=== PATIENT | male | born 1945 | race Caucasian/White ===

== ENCOUNTER 2017-06-02 05:34 | Outpatient (CLI) | payer MEDICARE, OTHER ==
[~2017-06-02] VITALS: Ht 180.3 cm; Wt 113.4 kg
[~2017-06-02 05:34] MED LIST: ALPR0.5T PO; CHERRY TART; FEXO1TAB43 PO; GLUC100016 PO; MULTIPLE VITAMINS; VITAMIN B12 PO; VITAMIN FOR EYES PO
[2017-06-02] MEDS ORDERED: VIT1CAPS4 PO (12:53)
[2017-06-02] MEDS ORDERED: MULT-1056 PO (12:53)
[2017-06-02] MEDS ORDERED: MULT-142 PO (12:53)
[2017-06-02] MEDS ORDERED: FEXO-46 PO (12:53)
[2017-06-02] MEDS ORDERED: TURM1CAP PO (12:53)
[2017-06-02] MEDS ORDERED: CYAN250010 PO (12:53)
== END 2017-06-02 12:58 ==
LOC: PREOP 05:34
PROVIDERS: ATTEND Surgery
DX: Z01.818 Encounter for other preprocedural examination (principal); L98.9 Disorder of the skin and subcutaneous tissue, unspecified

== ENCOUNTER 2017-06-05 08:23 | Day surgery (SDC) | payer MEDICARE, OTHER ==
[~2017-06-05] VITALS: Ht 180.3 cm; Wt 113.4 kg
[~2017-06-05 08:23] MED LIST changes: +CYAN250010 PO; +FEXO-46 PO; +MULT-1056 PO; +MULT-142 PO; +TURM1CAP PO; +VIT1CAPS4 PO
--- OUTSIDE RECORDS SUMMARY | 2017-06-05 08:27 | XMS REPORT | Continuity of Care Document ---
Author Author [facility] Organization [facility] Address Unknown Phone Unavailable Allergies Active Description Code Type Severity Reaction Onset Reported/Identified Relationship to Patient Clinical Status Yes No Known Drug Allergies [id number] Drug Allergy Unknown N/ A 02/07/2016 Medications Problems Date Dx Coded Attending Type Code Diagnosis Diagnosed By 02/07/2016 ED WILSON APRN Ot F41.9 ANXIETY DISORDER, UNSPECIFIED 02/11/2016 ED WILSON APRN Ot F41.9 ANXIETY DISORDER, UNSPECIFIED 2016 ED WILSON APRN Ot F41.9 ANXIETY DISORDER, UNSPECIFIED Procedures Results Encounters ACCT No. Visit Date/Time Discharge Status Pt. Type Provider Facility Loc./Unit Complaint [id number] 06/01/2017 11:30:00 2016 23:59:[address] MD [facility] SKIN LESIONS [id number] 02/07/2016 16:43:00 2015 19:20:00 DIS Emergency ED WILSON APRN [facility] ER [id number] 06/05/2017 11:15:[address] MD [facility] MULTIPLE SKIN LESIONS
--- NOTE | 2017-06-05 08:38 | Progress Note-Pre Operative ---
Pre-Operative Progress Note H&P Reviewed The H&P was reviewed, patient examined and no changes noted. Date Seen by Provider: May 18, 2017 Time Seen by Provider: 15:20 Date H&P Reviewed: Jun 05, 2017 Time H&P Reviewed: 08:38 Pre-Operative Diagnosis: Multiple skin lesions WENCESLAO WAY MD Jun 05, 2017 8:38 am
[2017-06-05 08:45] VITALS: BP 146/97
[2017-06-05] MEDS ORDERED: CATHETER FLUSH 10 ML SYR IV PRN (09:00)
[2017-06-05] MEDS ORDERED: ceFAZolin 2 GM/NS 50 ML IV ONE (09:00)
[2017-06-05] MEDS ORDERED: BUP/EPI 0.5% 1:200,000 (MARCAINE) 10ML VIAL IJ ONE (09:01)
[2017-06-05] MEDS ORDERED: EPINEPHrine INJECTION 1 MG/ML AMP ONE (09:01)
[2017-06-05] MEDS: LACTATED RINGERS 1,000 ML IV PRN ×2 (09:02→11:25)
[2017-06-05] MEDS ORDERED: fentaNYL INJECTION 100 MCG/2 ML AMP ONE ×2 (09:03→11:09)
[2017-06-05] MEDS ORDERED: LIDOCAINE PF 2% 5 ML (XYLOCAINE) VIAL ONE (09:03)
[2017-06-05] MEDS ORDERED: ONDANSETRON 4 MG/2 ML (SDV) Z0FRAN ONE (09:03)
[2017-06-05] MEDS ORDERED: proPOfol 200 MG/20 ML (DIPRIVAN) VIAL IV ONE ×2 (09:03→10:37)
[2017-06-05] MEDS ORDERED: SEVOFLURANE (ULTANE) 15 ML INHAL SOLN ONE (11:44)
[2017-06-05] MEDS ORDERED: ONDANSETRON 4 MG/2 ML (SDV) Z0FRAN IVP PRN (12:00)
[2017-06-05] MEDS ORDERED: morphine INJ 10 MG/ML 1ML (SYR OR VIAL) IVP PRN (12:00)
[2017-06-05] MEDS ORDERED: HYDR-3820 PO (12:00)
--- NOTE | 2017-06-05 12:00 | Operative Report ---
Operative Report Date of Procedure/Surgery Jun 05, 2017 Surgeon (s) WENCESLAO WAY MD Flight Director (s): n/a Post-Operative Diagnosis 1.2 cm skin cancer right flank 2. Squamous cell carcinoma scalp 4 x 4 centimeters 3. Squamous cell carcinoma right forearm 5 x 4 cm 4. Actinic keratosis dorsum of right hand 4 x 3 Procedure Performed 1.excision of all 4. Split thickness skin graft of number 2 and 3 Description of Procedure Anesthesia Type: General Estimated blood loss (mL): minimal Specimen(s) collected/removed skin cancers and actinic keratosis Description of the Procedure Indication for procedure: This gentleman presented with a total of 4 lesions involving scalp, right flank, right forearm and the dorsum of the right hand, having the appearance of skin cancers. He was offered excision with frozen section to confirm the diagnosis and ensure negative margins if carcinoma was found. With regard to the lesions over the scalp and the right forearm, the requirement for split thickness skin graft was highlighted. Informed consent was obtained after reviewing the operative details and complications of postoperative hematoma, failure of the graft and a wound infection. Description of the procedure: He was placed supine on the operating table and general anesthesia induced. 2 g of Ancef were administered intravenously as prophylaxis against wound infection. Sequential compression devices were placedaround his legs, to minimize the risk of venous thrombosis. 1. Excision of skin cancer right flank: He was placed in left lateral decubitus position to achieve optimal exposure of the involved region. After adequate antiseptic preparation, pre-empty analgesia was established using 0.5 percent Marcaine with epinephrine. An elliptical incision 3 cm long by 2 cm in width was made and the lesion excised down to the subcutaneous tissue. It was confirmed to have negative margins by the pathologist. Hemostasis was achieved using cautery and the defect closed using 4-0 nylon sutures, in an interrupted fashion. A nonadherent dressing was then applied. 2. Excision of squamous cell carcinoma scalp/split thickness skin grafting(16 square centimeters): Pre-empty analgesia was established using the same technique. The lesion was excised down to the periosteum and sent for frozen section analysis. Confirmed to be a squamous cell carcinoma with negative margins. Hemostasis was achieved using cautery and ligated clips. A split thickness graft taken from the right upper arm was placed over the excision site and secured with santos. A nonadherent dressing was then applied. 3. Excision of the muscle carcinoma right forearm/ split thickness skin grafting ( 20 cm): the lesion over the right forearm was excised down to the subcutaneous tissue and confirmed to be a squamous cell carcinoma with negative margins. Hemostasis was achieved using minimal use of cautery and ligaclips. A split thickness skin graft obtained from the right from was placed over the excision and secured with santos. A nonadherent dressing was then applied. 4.Excision of actinic keratosis-dorsum of right hand: 4 cm long by 3 cm in width was made over the dorsum of the right hand and the lesion excised. It was confirmed to be an actinic keratosis with negative margins. The defect was then closed using a combination of 40 and 5-0 nylon sutures, in an interrupted fashion. A nonadherent dressing was then applied. He tolerated the procedures well, was extubated in the operative room and taken to the recovery room in a stable condition. Findings of the Procedure see operative report Allergies and Home Medications Allergies Coded Allergies: No Known Drug Allergies (Unverified , 02/07/16) Home Medications Cyanocobalamin (Vitamin B-12) 2,500 Mcg Tablet, 2,500 MCG PO DAILY, (Reported) Fexofenadine HCl 180 Mg Tablet, 180 MG PO DAILY, (Reported) Multivit-Min/FA/Lycopen/Lutein 1 Each Tablet, 1 EACH PO DAILY, (Reported) Multivitamin W-Minerals/Lutein 1 Each Tablet, 1 EACH PO DAILY, (Reported) Turmeric/Turmeric Ext/Pepr Ext 1 Each Capsule, 500 MG PO BID, (Reported) Vit C/Hernández & Celery Ex/Grp E 1 Each Capsule, 1,200 MG PO DAILY, (Reported) WENCESLAO WAY MD Jun 05, 2017 12:00 pm
--- NOTE | 2017-06-05 12:02 | Discharge Inst-Simple/Standard ---
Discharge Inst-Standard Discharge Medications New, Converted or Re-Newed RX: RX on Chart Patient Instructions/Follow Up Plan of Care/Instructions/FU: right upper extremity to be kept elevated as much as possible. May reinforce the right upper arm with ABD pads and Kerlix as needed. Follow-up with my nurse on Thursday morning for dressing change. All the dressings to remain untouched and intact please Activity as Tolerated: Yes Discharge Diet: No Restrictions WENCESLAO WAY MD Jun 05, 2017 12:02 pm
[2017-06-05 13:00] VITALS: BP 125/77
[2017-06-05 13:01] VITALS: BP 125/77
[2017-06-05 13:33] VITALS: BP 124/78
[2017-06-05 14:00] VITALS: BP 130/77
== END 2017-06-05 14:20 | disposition home or self-care (01) ==
LOC: SDC 08:23
PROVIDERS: ATTEND Surgery
DX: C44.622 Squamous cell carcinoma of skin of right upper limb, including shoulder (principal); L08.9 Local infection of the skin and subcutaneous tissue, unspecified; G47.33 Obstructive sleep apnea (adult) (pediatric)
CPT/HCPCS: 87081

== ENCOUNTER → 2018-06-15 | Outpatient (CLI) | payer MEDICARE, OTHER ==
[~2018-06-15] MED LIST changes: +GADOBUTROL 15 MMOL/15 ML (GADAVIST) VIAL IV ONE; +HYDR-3820 PO
[2018-06-15 11:08] LABS: CREATININE SERUM 1.23 MG/DL (0.60-1.30)
--- NOTE | 2018-06-15 13:30 | Diagnostic Imaging Report ---
INDICATION: Left eye difficulties with swelling and inability to open. TECHNIQUE: Pre and post intravenous contrast multiplanar multisequence imaging of the brain and orbits was performed. COMPARISON: No prior MRI studies are available for comparison. FINDINGS: The ventricles and sulci are consistent with the patient's age. There are mild periventricular and subcortical white matter signal abnormalities noted, likely on the basis of chronic microvascular ischemia. The normal expected flow voids within the carotid siphons are seen. No diffusion restriction is seen to suggest acute ischemia. The corpus callosum is unremarkable. The sella and parasellar structures are unremarkable. No abnormal enhancing lesion is seen following contrast administration. Thin-slice imaging through the orbits was also performed. Bilateral globes have a normal appearance. The extraocular muscles appear to be symmetric bilaterally. No intraconal or extraconal mass is seen. Bilateral optic nerves and optic tracts as well as optic chiasm are unremarkable. IMPRESSION: Essentially unremarkable MRI of the brain and orbits apart from changes of chronic microvascular ischemia. No acute feature is detected. Dictated by: Dictated on workstation # [id number]
== END ==
LOC: RAD 10:36
PROVIDERS: ATTEND Ophthalmology
DX: H49.02 Third [oculomotor] nerve palsy, left eye (principal); H35.82 Retinal ischemia
CPT/HCPCS: 36415; 70553; 82565; 84520

== ENCOUNTER → 2018-12-30 | Outpatient (CLI) | payer MEDICARE, OTHER ==
[~2018-12-30] MED LIST changes: -GADOBUTROL 15 MMOL/15 ML (GADAVIST) VIAL IV ONE; +HOLD METFORMIN - RECEIVED CONTRAST 20 ML VIAL IV SCH
[2018-12-30 08:00] LABS: ALBUMIN 4.1 GM/DL (3.2-4.5); BILIRUBIN,TOTAL 0.8 MG/DL (0.1-1.0); CALCIUM 9.5 MG/DL (8.5-10.1); CREATININE SERUM 1.19 MG/DL (0.60-1.30); POTASSIUM 4.1 MMOL/L (3.6-5.0); TOTAL PROTEIN 7.6 GM/DL (6.4-8.2)
[2018-12-30] MEDS: IOHEXOL 350 MG/ML 100 ML (OMNIPAQUE 350) VIAL IV ONE (08:56)
--- NOTE | 2018-12-30 09:43 | Diagnostic Imaging Report ---
PROCEDURE: CT chest with contrast only. TECHNIQUE: Multiple contiguous axial images were obtained through the chest after administration of intravenous contrast. Auto Exposure Controls were utilized during the CT exam to meet ALARA standards for radiation dose reduction. INDICATION: Thymoma. No previous for comparison. There is no soft tissue infiltration or distortion of the anterior mediastinal fat. The pericardium appeared unremarkable. There is no pericardial effusion. Aorta is patent and nonaneurysmal. There is a small retrocardiac gastric hernia. The lungs are clear. No nodule, mass or infiltrate. No thoracic lymphadenopathy. No acute chest wall abnormality of the visualized upper abdomen that showed no acute finding. IMPRESSION: No CT apparent thymoma or other mediastinal mass. Hiatal hernia with no acute abnormality. Dictated by: Dictated on workstation # [id number]
== END ==
LOC: RAD 07:29
PROVIDERS: ATTEND Internal Medicine
DX: D15.0 Benign neoplasm of thymus (principal); K44.9 Diaphragmatic hernia without obstruction or gangrene
CPT/HCPCS: 36415; 71260; 80053

== ENCOUNTER → 2020-05-21 | Outpatient (CLI) | payer MEDICARE, OTHER ==
[~2020-05-21] MED LIST changes: +ACHYD1T PO; -HOLD METFORMIN - RECEIVED CONTRAST 20 ML VIAL IV SCH; -HYDR-3820 PO
--- NOTE | 2020-05-21 10:31 | Diagnostic Imaging Report ---
INDICATION: Dysphagia. TECHNIQUE: The procedure was performed in conjunction with Speech Pathology. Video fluoroscopy was performed during the swallowing of barium in multiple consistencies. The patient ingested thin liquid as well as applesauce, banana, meat, and cracker consistency. A total of 44 seconds of fluoroscopic time was utilized. FINDINGS: The oral phase is unremarkable. There is normal epiglottic tilt and laryngeal elevation. No laryngeal penetration or aspiration was observed. Very mild vallecular residue was noted with multiple consistencies. IMPRESSION: Essentially unremarkable modified barium swallow. There was no evidence of penetration or aspiration. Dictated by: Dictated on workstation # [id number]
== END ==
LOC: RAD 09:44
PROVIDERS: ATTEND Internal Medicine
DX: R13.19 Other dysphagia (principal)
CPT/HCPCS: 74230

== ENCOUNTER → 2020-07-05 | Outpatient (CLI) | payer MEDICARE, OTHER ==
[~2020-07-05] MED LIST changes: +HOLD METFORMIN - RECEIVED CONTRAST 20 ML VIAL IV SCH; +IOHEXOL 350 MG/ML 100 ML (OMNIPAQUE 350) VIAL IV ONE; +NS 100 ML (IVPB) BAG IV ONE
[2020-07-05 07:33] LABS: BUN/CREATININE RATIO 13; CALCIUM 9.3 MG/DL (8.5-10.1); CARBON DIOXIDE 27 MMOL/L (21-32); CHLORIDE 103 MMOL/L (98-107); GFR ESTIMATED > 60; GLUCOSE 101 MG/DL (70-105); POTASSIUM 4.1 MMOL/L (3.6-5.0); SODIUM 141 MMOL/L (135-145)
--- NOTE | 2020-07-05 09:01 | Diagnostic Imaging Report ---
PROCEDURE: CT chest, abdomen, and pelvis with contrast. TECHNIQUE: Multiple contiguous axial images were obtained through the chest, abdomen, and pelvis after the administration of intravenous contrast. Auto Exposure Controls were utilized during the CT exam to meet ALARA standards for radiation dose reduction. INDICATION: Weight loss and adenocarcinoma. COMPARISON: Correlation is made with prior CT chest from 12/30/2018. FINDINGS: CT chest: No axillary lymphadenopathy is identified. No mediastinal mass or lymphadenopathy is detected. No hilar lymphadenopathy is identified. There is no pericardial or pleural fluid detected. The lungs appear clear. No pulmonary nodules or masses are seen. There are no infiltrates. There is minimal scarring in the lingula. The bony structures are nonacute. IMPRESSION: Unremarkable CT of the chest. No thoracic lymphadenopathy or evidence of pulmonary metastatic disease is identified. CT abdomen and pelvis: The liver does show some low-density heterogeneity in the left lobe. Liver lesions at this location cannot be entirely excluded. Right lobe is unremarkable. Gallbladder is unremarkable. There is no biliary ductal dilatation. Pancreas and spleen are unremarkable. No adrenal mass is detected. Kidneys are unremarkable. Aorta is non-aneurysmal. 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 There are some prominent lymph nodes in the central retroperitoneum in the right and left para-aortic locations. Lymph node conglomerate left periaortic region measures 2.1 x 1.3 cm. Lymph node anterior to the left-sided IVC measures 1.5 x 1.1 cm. There also appears to be abnormal soft tissue in the gastrohepatic region measuring 3.4 x 2.5 cm. No iliac or inguinal lymphadenopathy is detected. Aorta is non-aneurysmal. Small and large bowel loops are normal caliber. There is no obstruction. There is extensive diverticulosis of the sigmoid but no evidence of acute diverticulitis. No free fluid or fluid collection is identified. The bladder is decompressed. Prostate is enlarged. The bony structures are nonacute. IMPRESSION: 1. There is ill-defined low density identified in the left lobe of the liver. It is uncertain if this merely represents parenchymal heterogeneity versus actual liver lesions. Ultrasound or MRI of the liver would be recommended for further characterization. In addition, the patient does have lymphadenopathy in the gastrohepatic ligament as well as in the central retroperitoneum concerning for metastatic disease. 2. Uncomplicated diverticulosis. 3. Prostatomegaly. Dictated by: Dictated on workstation # [id number]
== END ==
LOC: RAD 07:07
PROVIDERS: ATTEND Internal Medicine
DX: C16.9 Malignant neoplasm of stomach, unspecified (principal); N40.1 Benign prostatic hyperplasia with lower urinary tract symptoms; K57.90 Diverticulosis of intestine, part unspecified, without perforation or abscess without bleeding
CPT/HCPCS: 36415; 71260; 74177; 80048

== ENCOUNTER → 2020-07-24 | Outpatient (CLI) | payer MEDICARE, OTHER ==
[~2020-07-24] MED LIST changes: -HOLD METFORMIN - RECEIVED CONTRAST 20 ML VIAL IV SCH; -IOHEXOL 350 MG/ML 100 ML (OMNIPAQUE 350) VIAL IV ONE; -NS 100 ML (IVPB) BAG IV ONE
--- NOTE | 2020-07-25 11:21 | Diagnostic Imaging Report ---
INDICATION: Adenocarcinoma of the esophagus. PROCEDURE: Following intravenous injection of 14.71 mCi of F18 Fluorodeoxyglucose (FDG), a noncontrast CT scan followed by PET scan were acquired along the length of the body from approximately the vertex of skull to the proximal thighs. The noncontrast CT was used for anatomic localization and photon attenuation correction of the PET scan. COMPARISON: None. FINDINGS: The brain does not show any metabolic lesion. The cervical lymph nodes are negative. Supraclavicular and axillary nodes are negative. The mediastinal and hilar lymph nodes do not show any significant abnormality. No hypermetabolic esophageal lesion is identified. Increased isotope accumulation is present in the gastric cardia, SUV max at about 2.8 which questionable soft tissue density wall thickening at that region. The lungs and pleural space are negative. In the lateral segment of the left lobe of the liver and the anterior aspect of the medial segment of the left lobe, relative mildly increased metabolic activity is present. The SUV max of the left lobe is about 2.0. The normal liver has an SUV max of 1.6. The increased metabolic activity is poorly defined. The spleen is negative. The adrenals are negative. The lymphadenopathy identified in the gastrohepatic ligament on the recent CT scan is not hypermetabolic. It has low-level metabolic activity with an SUV max of 1.6. The aortocaval and para-aortic adenopathy identified on the recent CT scan is not hypermetabolic either with low level metabolic activity. The pelvic and inguinal nodes are negative. Multiple sigmoid diverticula are present. The prostate gland is enlarged without any focal lesion. No hypermetabolic osseous lesion is seen. IMPRESSION: 1. The gastrohepatic ligament and retroperitoneal adenopathy are not hypermetabolic and could represent benign disease or low-grade malignant neoplasm. 2. Slight increased xen-wixz-akxe metabolic activity in the lateral segment of the left lobe of the liver and anterior medial segment of the left lobe. This may be physiologic normal variation rather than neoplasm. Recommend MRI of the liver for assessment. 3. Indeterminate increased metabolic activity and possible wall thickening of the gastric cardia. This is suspicious for primary neoplasm rather than physiologic activity. 4. The report was called and faxed to [facility] in the office of Dr. Froilan Valle by samuel@1:51 PM. Dictated by: Dictated on workstation # [id number]
== END ==
LOC: RAD 09:45
PROVIDERS: ATTEND Internal Medicine Hematology & Oncology
DX: C15.9 Malignant neoplasm of esophagus, unspecified (principal); R59.0 Localized enlarged lymph nodes
CPT/HCPCS: 78815; A9552

== ENCOUNTER 2020-07-25 14:43 | Outpatient (RCR) | payer MEDICARE, OTHER ==
[2020-07-17 10:32] LABS: BASOPHILS # (AUTO) 0.1 10^3/uL (0.0-0.1); BASOPHILS % (AUTO) 1 % (0-10); EOSINOPHILS # (AUTO) 0.3 10^3/uL (0.0-0.3); EOSINOPHILS % (AUTO) 4 % (0-10); HEMATOCRIT 47 % (40-54); HEMOGLOBIN 15.2 g/dL (13.3-17.7); LYMPHOCYTES # (AUTO) 2.7 10^3/uL (1.0-4.0); LYMPHOCYTES % (AUTO) 41 % (12-44); MEAN CORPUSCULAR HEMOGLOBIN 31 pg (25-34); MEAN CORPUSCULAR HGB CONC 33 g/dL (32-36); MEAN CORPUSCULAR VOLUME 95 fL (80-99); MEAN PLATELET VOLUME 9.6 fL (9.0-12.2); MONOCYTES # (AUTO) 0.4 10^3/uL (0.0-1.0); MONOCYTES % (AUTO) 6 % (0-12); NEUTROPHILS # (AUTO) 3.1 10^3/uL (1.8-7.8); NEUTROPHILS % (AUTO) 48 % (42-75); PLATELET COUNT 207 10^3/uL (130-400); WHITE BLOOD COUNT 6.5 10^3/uL (4.3-11.0)
[2020-07-17 10:54] LABS: ALANINE AMINOTRANSFERASE 32 U/L (0-55); ALBUMIN 3.7 GM/DL (3.2-4.5); ALKALINE PHOSPHATASE 179 U/L (40-136); BILIRUBIN,TOTAL 0.7 MG/DL (0.1-1.0); BUN/CREATININE RATIO 16; CALCIUM 9.2 MG/DL (8.5-10.1); CARBON DIOXIDE 26 MMOL/L (21-32); CHLORIDE 104 MMOL/L (98-107); CREATININE SERUM 1.03 MG/DL (0.60-1.30); GFR ESTIMATED > 60; GLUCOSE 119 MG/DL (70-105); POTASSIUM 4.2 MMOL/L (3.6-5.0); SODIUM 141 MMOL/L (135-145); TOTAL PROTEIN 7.5 GM/DL (6.4-8.2)
== END 2020-09-03 09:20 | disposition home or self-care (01) ==
LOC: ONC 14:43
PROVIDERS: ATTEND Internal Medicine Hematology & Oncology
DX: C16.9 Malignant neoplasm of stomach, unspecified (principal); C15.9 Malignant neoplasm of esophagus, unspecified; Z98.42 Cataract extraction status, left eye
CPT/HCPCS: 80053; 82378; 85025; G0463; 99213; 99214

== ENCOUNTER → 2020-08-06 | Outpatient (CLI) | payer MEDICARE, OTHER | LOC: LABNPT 08:15 | PROVIDERS: ATTEND Internal Medicine Gastroenterology | DX: Z20.828 Contact with and (suspected) exposure to other viral communicable diseases (principal) | CPT/HCPCS: 87635 ==

== ENCOUNTER 2020-09-18 15:11 | Emergency (ER) | payer MEDICARE, OTHER ==
[~2020-09-18] VITALS: Ht 70 cm; Wt 85.0 kg
--- NOTE | 2020-09-18 16:03 | ED General ---
General Chief Complaint: Catheter/Drain/Tube Problems Stated Complaint: CRUZ CAME OUT OF FEEDING TUBE Nursing Triage Note: pt states there is a stitch that has came out on the right side. Pt dr told him to go to original but they are in [place] so the patient came to ER. Nursing Sepsis Screen: No Definite Risk (SHANEKA CHAN MED STUDENT) History of Present Illness Date Seen by Provider: Sep 18, 2020 Time Seen by Provider: 15:33 Initial Comments This is a 75 year old patient who presents to the Emergency Department via ambulation for a chief complaint of a stitch that fell out from his feeding tube. His home healthcare nurse noticed it. He went to his PCP Dr. Galvez but he declined to replace the stitch. His doctor advised him to go the where the tube was placed. The patient states that was too far for him and came to the ER. He denies leakage, inflammation, or redness. He is currently receiving treatment at for his upper stomach and esophageal cancer. Associated Systoms: Denies Symptoms (SHANEKA CHAN STUDENT) Allergies and Home Medications Allergies Coded Allergies: No Known Drug Allergies (Unverified , 02/07/16) Home Medications Cyanocobalamin (Vitamin B-12) 2,500 Mcg Tablet, 2,500 MCG PO DAILY, (Reported) Fexofenadine HCl 180 Mg Tablet, 180 MG PO DAILY, (Reported) Hydrocodone Bit/Acetaminophen 1 Each Tablet, 1 TAB PO Q4H PRN for PAIN-MILD TO MODERATE Prescribed by: WENCESLAO WAY on 06/05/17 1200 Multivit-Min/FA/Lycopen/Lutein 1 Each Tablet, 1 EACH PO DAILY, (Reported) Multivitamin W-Minerals/Lutein 1 Each Tablet, 1 EACH PO DAILY, (Reported) Turmeric/Turmeric Ext/Pepr Ext 1 Each Capsule, 500 MG PO BID, (Reported) Vit C/Hernández & Celery Ex/Grp E 1 Each Capsule, 1,200 MG PO DAILY, (Reported) Patient Home Medication List Home Medication List Reviewed: Yes (ED WILSON APRN) Review of Systems Review of Systems Constitutional: no symptoms reported EENTM: no symptoms reported Respiratory: no symptoms reported Cardiovascular: no symptoms reported Gastrointestinal: no symptoms reported Genitourinary: no symptoms reported Musculoskeletal: no symptoms reported Skin: no symptoms reported Psychiatric/Neurological: No Symptoms Reported Hematologic/Lymphatic: No Symptoms Reported Immunological/Allergic: no symptoms reported (SHANEKA CHAN minicabit SHANE) Past Syxwoog-Qpormf-Rxsoly Hx Patient Social History Recent Infectious Disease Expo: No Recent Hopitalizations: No (SHANEKA CHAN) Immunizations Up To Date Tetanus Booster (TDap): Unknown (SHANEKA CHAN) Seasonal Allergies Seasonal Allergies: Yes (SHANEKA CHAN) Past Medical History Sleep Apnea Currently Using CPAP: Yes Reproductive Disorders: No Sexually Transmitted Disease: No HIV/AIDS: No Arthritis, Gout Skin (SHANEKA CHAN minicabit SHANE) Physical Exam Vital Signs Vital Signs - First Documented 09/18/20 15:20 Temp 36.4 Pulse 66 Resp 16 B/P (MAP) 128/87 (101) Pulse Ox 100 O2 Delivery Room Air (ED WILSON APRN) Vital Signs Capillary Refill : Less Than 3 Seconds (SHANEKA CHAN) Height, Weight, BMI Height: 5'11.00" Weight: 250lbs. 0.0oz. 113.741105mh; 173.00 BMI Method:Stated General Appearance: No Apparent Distress, WD/WN Respiratory: Chest Non Tender, Lungs Clear, Normal Breath Sounds, No Accessory Muscle Use, No Respiratory Distress Cardiovascular: Regular Rate, Rhythm Comments A missing stitch from feeding tube on abdomen (SHANEKA CHAN) Progress/Results/Core Measures Suspected Sepsis Recent Fever Within 48 Hours: No Infection Criteria Present: None New/Unexplained Altered Menta: No Sepsis Screen: No Definite Risk SIRS Temperature: Pulse: 66 Respiratory Rate: 16 Blood Pressure 128 /87 Mean: 101 (SHANEKA CHAN STUDENT) Results/Orders Vital Signs/I&O 09/18/20 09/18/20 15:20 16:38 Temp 36.4 36.4 Pulse 66 75 Resp 16 20 B/P (MAP) 128/87 (101) 128/68 Pulse Ox 100 100 O2 Delivery Room Air Room Air (ED WILSON APRN) Vital Signs/I&O Capillary Refill : Less Than 3 Seconds (SHANEKA CHAN) Blood Pressure Mean: 101 Departure Communication (Admissions) To ER with one of the 2 silk sutures holding the new gastrostomy tube in place having come undone. Primary care would not touch it and they advised he could go back to [facility]. He preferred to come here. (ED WILSON APRN) Impression Primary Impression: Broken suture Disposition: 01 HOME, SELF-CARE Condition: Stable Departure-Patient Inst. Decision time for Depature: 16:08 (ED WILSON APRN) Referrals: JOSE ARMANDO GALVEZ DO (PCP/Family) Primary Care Physician Patient Instructions: Wound Care Add. Discharge Instructions: 1. Keep a close eye on this for any redness swelling or sign of infection. Follow-up with [facility] as scheduled. All discharge instructions reviewed with patient and/or family. Voiced understanding. SHANEKA CHAN MED STUDENT Sep 18, 2020 16:03 ED WILSON APRN Sep 18, 2020 16:08
[2020-09-18 16:38] VITALS: BP 128/68
== END 2020-09-18 16:38 | disposition home or self-care (01) ==
LOC: EDUNIT# 15:11 → ER 15:16
DX: T85.612A Breakdown (mechanical) of permanent sutures, initial encounter (principal)
CPT/HCPCS: 99281

== ENCOUNTER 2020-11-26 11:23 | Outpatient (RCR) | payer MEDICARE, OTHER ==
[2020-09-11 11:29] LABS: BASOPHILS # (AUTO) 0.1 10^3/uL (0.0-0.1); BASOPHILS % (AUTO) 1 % (0-10); EOSINOPHILS # (AUTO) 0.2 10^3/uL (0.0-0.3); EOSINOPHILS % (AUTO) 4 % (0-10); HEMATOCRIT 44 % (40-54); HEMOGLOBIN 14.6 g/dL (13.3-17.7); LYMPHOCYTES % (AUTO) 35 % (12-44); MEAN CORPUSCULAR HEMOGLOBIN 32 pg (25-34); MEAN CORPUSCULAR HGB CONC 33 g/dL (32-36); MEAN CORPUSCULAR VOLUME 96 fL (80-99); MEAN PLATELET VOLUME 9.9 fL (9.0-12.2); MONOCYTES # (AUTO) 0.3 10^3/uL (0.0-1.0); MONOCYTES % (AUTO) 6 % (0-12); NEUTROPHILS # (AUTO) 3.1 10^3/uL (1.8-7.8); NEUTROPHILS % (AUTO) 54 % (42-75); PLATELET COUNT 226 10^3/uL (130-400); WHITE BLOOD COUNT 5.7 10^3/uL (4.3-11.0)
[2020-09-11 11:50] LABS: ALANINE AMINOTRANSFERASE 185 U/L (0-55); ALBUMIN 3.6 GM/DL (3.2-4.5); ALKALINE PHOSPHATASE 886 U/L (40-136); BUN/CREATININE RATIO 19; CALCIUM 9.4 MG/DL (8.5-10.1); CARBON DIOXIDE 29 MMOL/L (21-32); CHLORIDE 104 MMOL/L (98-107); CREATININE SERUM 0.86 MG/DL (0.60-1.30); GFR ESTIMATED > 60; GLUCOSE 94 MG/DL (70-105); MAGNESIUM 2.1 MG/DL (1.6-2.4); POTASSIUM 4.4 MMOL/L (3.6-5.0); SODIUM 141 MMOL/L (135-145); TOTAL PROTEIN 7.7 GM/DL (6.4-8.2)
[2020-09-25 09:18] LABS: BASOPHILS % (AUTO) 1 % (0-10); EOSINOPHILS # (AUTO) 0.2 10^3/uL (0.0-0.3); EOSINOPHILS % (AUTO) 3 % (0-10); HEMATOCRIT 40 % (40-54); HEMOGLOBIN 13.1 g/dL (13.3-17.7); LYMPHOCYTES # (AUTO) 2.7 10^3/uL (1.0-4.0); LYMPHOCYTES % (AUTO) 46 % (12-44); MEAN CORPUSCULAR HEMOGLOBIN 31 pg (25-34); MEAN CORPUSCULAR HGB CONC 33 g/dL (32-36); MEAN CORPUSCULAR VOLUME 95 fL (80-99); MEAN PLATELET VOLUME 9.3 fL (9.0-12.2); MONOCYTES # (AUTO) 0.4 10^3/uL (0.0-1.0); MONOCYTES % (AUTO) 8 % (0-12); NEUTROPHILS # (AUTO) 2.5 10^3/uL (1.8-7.8); NEUTROPHILS % (AUTO) 42 % (42-75); PLATELET COUNT 204 10^3/uL (130-400); WHITE BLOOD COUNT 5.9 10^3/uL (4.3-11.0)
[2020-09-25 09:40] LABS: ALANINE AMINOTRANSFERASE 82 U/L (0-55); ALBUMIN 3.5 GM/DL (3.2-4.5); ALKALINE PHOSPHATASE 633 U/L (40-136); BILIRUBIN,TOTAL 0.7 MG/DL (0.1-1.0); BUN/CREATININE RATIO 18; CALCIUM 9.2 MG/DL (8.5-10.1); CARBON DIOXIDE 26 MMOL/L (21-32); CHLORIDE 104 MMOL/L (98-107); CREATININE SERUM 0.88 MG/DL (0.60-1.30); GFR ESTIMATED > 60; GLUCOSE 96 MG/DL (70-105); MAGNESIUM 2.2 MG/DL (1.6-2.4); POTASSIUM 4.4 MMOL/L (3.6-5.0); SODIUM 141 MMOL/L (135-145)
[2020-10-01 12:00] LABS: BUN/CREATININE RATIO 20; CALCIUM 9.2 MG/DL (8.5-10.1); CARBON DIOXIDE 26 MMOL/L (21-32); CHLORIDE 103 MMOL/L (98-107); CREATININE SERUM 0.92 MG/DL (0.60-1.30); GFR ESTIMATED > 60; GLUCOSE 110 MG/DL (70-105); POTASSIUM 4.2 MMOL/L (3.6-5.0); SODIUM 141 MMOL/L (135-145)
[2020-10-08 09:39] LABS: BASOPHILS % (AUTO) 0 % (0-10); EOSINOPHILS # (AUTO) 0.1 10^3/uL (0.0-0.3); EOSINOPHILS % (AUTO) 2 % (0-10); HEMATOCRIT 40 % (40-54); HEMOGLOBIN 13.3 g/dL (13.3-17.7); LYMPHOCYTES # (AUTO) 2.8 10^3/uL (1.0-4.0); LYMPHOCYTES % (AUTO) 49 % (12-44); MEAN CORPUSCULAR HEMOGLOBIN 31 pg (25-34); MEAN CORPUSCULAR HGB CONC 33 g/dL (32-36); MEAN CORPUSCULAR VOLUME 95 fL (80-99); MEAN PLATELET VOLUME 9.6 fL (9.0-12.2); MONOCYTES # (AUTO) 0.4 10^3/uL (0.0-1.0); MONOCYTES % (AUTO) 8 % (0-12); NEUTROPHILS # (AUTO) 2.3 10^3/uL (1.8-7.8); NEUTROPHILS % (AUTO) 41 % (42-75); PLATELET COUNT 171 10^3/uL (130-400); WHITE BLOOD COUNT 5.6 10^3/uL (4.3-11.0)
[2020-10-08 09:52] LABS: ALANINE AMINOTRANSFERASE 76 U/L (0-55); ALBUMIN 3.5 GM/DL (3.2-4.5); ALKALINE PHOSPHATASE 534 U/L (40-136); BILIRUBIN,TOTAL 0.6 MG/DL (0.1-1.0); BUN/CREATININE RATIO 16; CALCIUM 9.2 MG/DL (8.5-10.1); CARBON DIOXIDE 25 MMOL/L (21-32); CHLORIDE 106 MMOL/L (98-107); CREATININE SERUM 0.85 MG/DL (0.60-1.30); GFR ESTIMATED > 60; GLUCOSE 93 MG/DL (70-105); MAGNESIUM 2.3 MG/DL (1.6-2.4); POTASSIUM 4.6 MMOL/L (3.6-5.0); SODIUM 142 MMOL/L (135-145); TOTAL PROTEIN 7.3 GM/DL (6.4-8.2)
[2020-10-16 12:06] LABS: BASOPHILS % (AUTO) 0 % (0-10); EOSINOPHILS # (AUTO) 0.1 10^3/uL (0.0-0.3); EOSINOPHILS % (AUTO) 1 % (0-10); HEMATOCRIT 40 % (40-54); HEMOGLOBIN 13.2 g/dL (13.3-17.7); LYMPHOCYTES # (AUTO) 2.9 10^3/uL (1.0-4.0); LYMPHOCYTES % (AUTO) 40 % (12-44); MEAN CORPUSCULAR HEMOGLOBIN 32 pg (25-34); MEAN CORPUSCULAR HGB CONC 33 g/dL (32-36); MEAN CORPUSCULAR VOLUME 96 fL (80-99); MEAN PLATELET VOLUME 9.7 fL (9.0-12.2); MONOCYTES # (AUTO) 0.8 10^3/uL (0.0-1.0); MONOCYTES % (AUTO) 11 % (0-12); NEUTROPHILS # (AUTO) 3.3 10^3/uL (1.8-7.8); NEUTROPHILS % (AUTO) 46 % (42-75); PLATELET COUNT 184 10^3/uL (130-400); WHITE BLOOD COUNT 7.1 10^3/uL (4.3-11.0)
[2020-10-16 12:27] LABS: BUN/CREATININE RATIO 22; CALCIUM 9.4 MG/DL (8.5-10.1); CARBON DIOXIDE 26 MMOL/L (21-32); CHLORIDE 105 MMOL/L (98-107); CREATININE SERUM 0.87 MG/DL (0.60-1.30); GFR ESTIMATED > 60; GLUCOSE 93 MG/DL (70-105); POTASSIUM 4.2 MMOL/L (3.6-5.0); SODIUM 143 MMOL/L (135-145)
[2020-10-22 09:28] LABS: BASOPHILS % (AUTO) 1 % (0-10); EOSINOPHILS # (AUTO) 0.1 10^3/uL (0.0-0.3); EOSINOPHILS % (AUTO) 2 % (0-10); HEMATOCRIT 38 % (40-54); HEMOGLOBIN 12.5 g/dL (13.3-17.7); LYMPHOCYTES # (AUTO) 2.4 10^3/uL (1.0-4.0); LYMPHOCYTES % (AUTO) 48 % (12-44); MEAN CORPUSCULAR HEMOGLOBIN 31 pg (25-34); MEAN CORPUSCULAR HGB CONC 33 g/dL (32-36); MEAN CORPUSCULAR VOLUME 94 fL (80-99); MEAN PLATELET VOLUME 9.9 fL (9.0-12.2); MONOCYTES # (AUTO) 0.5 10^3/uL (0.0-1.0); MONOCYTES % (AUTO) 10 % (0-12); NEUTROPHILS % (AUTO) 40 % (42-75); PLATELET COUNT 223 10^3/uL (130-400); WHITE BLOOD COUNT 5.1 10^3/uL (4.3-11.0)
[2020-10-22 09:49] LABS: ALANINE AMINOTRANSFERASE 45 U/L (0-55); ALBUMIN 3.3 GM/DL (3.2-4.5); ALKALINE PHOSPHATASE 483 U/L (40-136); BILIRUBIN,TOTAL 0.6 MG/DL (0.1-1.0); BUN/CREATININE RATIO 19; CALCIUM 9.3 MG/DL (8.5-10.1); CARBON DIOXIDE 26 MMOL/L (21-32); CHLORIDE 105 MMOL/L (98-107); CREATININE SERUM 0.83 MG/DL (0.60-1.30); GFR ESTIMATED > 60; GLUCOSE 99 MG/DL (70-105); MAGNESIUM 2.1 MG/DL (1.6-2.4); POTASSIUM 4.5 MMOL/L (3.6-5.0); SODIUM 141 MMOL/L (135-145); TOTAL PROTEIN 7.2 GM/DL (6.4-8.2)
[2020-10-29 11:04] LABS: BASOPHILS % (AUTO) 0 % (0-10); EOSINOPHILS # (AUTO) 0.1 10^3/uL (0.0-0.3); EOSINOPHILS % (AUTO) 1 % (0-10); HEMATOCRIT 41 % (40-54); HEMOGLOBIN 13.3 g/dL (13.3-17.7); LYMPHOCYTES # (AUTO) 2.7 10^3/uL (1.0-4.0); LYMPHOCYTES % (AUTO) 48 % (12-44); MEAN CORPUSCULAR HEMOGLOBIN 31 pg (25-34); MEAN CORPUSCULAR HGB CONC 33 g/dL (32-36); MEAN CORPUSCULAR VOLUME 96 fL (80-99); MEAN PLATELET VOLUME 9.6 fL (9.0-12.2); MONOCYTES # (AUTO) 0.4 10^3/uL (0.0-1.0); MONOCYTES % (AUTO) 8 % (0-12); NEUTROPHILS # (AUTO) 2.4 10^3/uL (1.8-7.8); NEUTROPHILS % (AUTO) 43 % (42-75); PLATELET COUNT 207 10^3/uL (130-400); WHITE BLOOD COUNT 5.7 10^3/uL (4.3-11.0)
[2020-10-29 11:24] LABS: BUN/CREATININE RATIO 15; CALCIUM 9.1 MG/DL (8.5-10.1); CARBON DIOXIDE 26 MMOL/L (21-32); CHLORIDE 104 MMOL/L (98-107); CREATININE SERUM 0.93 MG/DL (0.60-1.30); GFR ESTIMATED > 60; GLUCOSE 125 MG/DL (70-105); MAGNESIUM 3.3 MG/DL (1.6-2.4); POTASSIUM 4.2 MMOL/L (3.6-5.0); SODIUM 139 MMOL/L (135-145)
[2020-11-05 09:00] LABS: BASOPHILS # (AUTO) 0.1 10^3/uL (0.0-0.1); BASOPHILS % (AUTO) 1 % (0-10); EOSINOPHILS # (AUTO) 0.1 10^3/uL (0.0-0.3); EOSINOPHILS % (AUTO) 2 % (0-10); HEMATOCRIT 39 % (40-54); HEMOGLOBIN 12.8 g/dL (13.3-17.7); LYMPHOCYTES # (AUTO) 2.7 10^3/uL (1.0-4.0); LYMPHOCYTES % (AUTO) 48 % (12-44); MEAN CORPUSCULAR HEMOGLOBIN 32 pg (25-34); MEAN CORPUSCULAR HGB CONC 33 g/dL (32-36); MEAN CORPUSCULAR VOLUME 95 fL (80-99); MEAN PLATELET VOLUME 9.9 fL (9.0-12.2); MONOCYTES # (AUTO) 0.5 10^3/uL (0.0-1.0); MONOCYTES % (AUTO) 8 % (0-12); NEUTROPHILS # (AUTO) 2.2 10^3/uL (1.8-7.8); NEUTROPHILS % (AUTO) 40 % (42-75); PLATELET COUNT 152 10^3/uL (130-400); WHITE BLOOD COUNT 5.5 10^3/uL (4.3-11.0)
[2020-11-05 09:28] LABS: ALANINE AMINOTRANSFERASE 102 U/L (0-55); ALBUMIN 3.3 GM/DL (3.2-4.5); ALKALINE PHOSPHATASE 467 U/L (40-136); BILIRUBIN,TOTAL 0.5 MG/DL (0.1-1.0); BUN/CREATININE RATIO 13; CALCIUM 9.1 MG/DL (8.5-10.1); CARBON DIOXIDE 27 MMOL/L (21-32); CHLORIDE 104 MMOL/L (98-107); CREATININE SERUM 0.89 MG/DL (0.60-1.30); GFR ESTIMATED > 60; GLUCOSE 95 MG/DL (70-105); MAGNESIUM 2.3 MG/DL (1.6-2.4); POTASSIUM 4.4 MMOL/L (3.6-5.0); SODIUM 140 MMOL/L (135-145)
[2020-11-12 12:33] LABS: HEMOGLOBIN 12.8 g/dL (13.3-17.7); MEAN CORPUSCULAR VOLUME 97 fL (80-99)
[2020-11-12 12:35] LABS: BASOPHILS % (AUTO) 1 % (0-10); EOSINOPHILS # (AUTO) 0.1 10^3/uL (0.0-0.3); EOSINOPHILS % (AUTO) 3 % (0-10); HEMATOCRIT 38 % (40-54); LYMPHOCYTES # (AUTO) 2.5 10^3/uL (1.0-4.0); LYMPHOCYTES % (AUTO) 52 % (12-44); MEAN CORPUSCULAR HEMOGLOBIN 33 pg (25-34); MEAN CORPUSCULAR HGB CONC 34 g/dL (32-36); MEAN PLATELET VOLUME 10.1 fL (9.0-12.2); MONOCYTES # (AUTO) 0.5 10^3/uL (0.0-1.0); MONOCYTES % (AUTO) 9 % (0-12); NEUTROPHILS # (AUTO) 1.7 10^3/uL (1.8-7.8); NEUTROPHILS % (AUTO) 35 % (42-75); PLATELET COUNT 151 10^3/uL (130-400); WHITE BLOOD COUNT 4.8 10^3/uL (4.3-11.0)
[2020-11-12 12:48] LABS: BUN/CREATININE RATIO 17; CARBON DIOXIDE 28 MMOL/L (21-32); CHLORIDE 105 MMOL/L (98-107); CREATININE SERUM 0.94 MG/DL (0.60-1.30); GFR ESTIMATED > 60; GLUCOSE 100 MG/DL (70-105); POTASSIUM 4.5 MMOL/L (3.6-5.0); SODIUM 141 MMOL/L (135-145)
[2020-11-19 09:33] LABS: BASOPHILS % (AUTO) 1 % (0-10); EOSINOPHILS # (AUTO) 0.1 10^3/uL (0.0-0.3); EOSINOPHILS % (AUTO) 2 % (0-10); HEMATOCRIT 39 % (40-54); HEMOGLOBIN 12.9 g/dL (13.3-17.7); LYMPHOCYTES # (AUTO) 3.3 10^3/uL (1.0-4.0); LYMPHOCYTES % (AUTO) 54 % (12-44); MEAN CORPUSCULAR HEMOGLOBIN 32 pg (25-34); MEAN CORPUSCULAR HGB CONC 33 g/dL (32-36); MEAN CORPUSCULAR VOLUME 97 fL (80-99); MONOCYTES # (AUTO) 0.5 10^3/uL (0.0-1.0); MONOCYTES % (AUTO) 8 % (0-12); NEUTROPHILS # (AUTO) 2.1 10^3/uL (1.8-7.8); NEUTROPHILS % (AUTO) 35 % (42-75); PLATELET COUNT 149 10^3/uL (130-400); WHITE BLOOD COUNT 6.1 10^3/uL (4.3-11.0)
[2020-11-19 09:54] LABS: ALANINE AMINOTRANSFERASE 75 U/L (0-55); ALBUMIN 3.5 GM/DL (3.2-4.5); ALKALINE PHOSPHATASE 395 U/L (40-136); BILIRUBIN,TOTAL 0.7 MG/DL (0.1-1.0); BUN/CREATININE RATIO 16; CALCIUM 9.2 MG/DL (8.5-10.1); CARBON DIOXIDE 25 MMOL/L (21-32); CHLORIDE 105 MMOL/L (98-107); CREATININE SERUM 0.87 MG/DL (0.60-1.30); GFR ESTIMATED > 60; GLUCOSE 93 MG/DL (70-105); MAGNESIUM 2.6 MG/DL (1.6-2.4); POTASSIUM 4.3 MMOL/L (3.6-5.0); SODIUM 141 MMOL/L (135-145); TOTAL PROTEIN 7.1 GM/DL (6.4-8.2)
[~2020-11-26] VITALS: Ht 180.3 cm; Wt 87.1 kg
[~2020-11-26 11:23] MED LIST changes: +D5W 500 ML IV (CANCER CTR) 500 ML IV SCH; +FLUOROURACIL IV SCH; +FOSAPREPITANT (CANCER CENTER) 150 MG in NS (IVPB) CANCER CENTER ONLY 150 ML IV SCH; +LEUCOVORIN CALCIUM 400 MG in D5W 250 ML IVPB (CANCER CTR) 250 ML IV SCH; +LEUCOVORIN CALCIUM 500 MG, LEUCOVORIN CALCIUM 100 MG in D5W 250 ML IVPB (CANCER CTR) 25... IV SCH; +NIVOLUMAB 240 MG in NS (IVPB) CANCER CENTER 100 ML IV SCH; +NS IV SCH; +OXALIPLATIN 160 MG in D5W 250 ML IVPB (CANCER CTR) 250 ML IV SCH
[2020-11-26 11:37] LABS: BASOPHILS % (AUTO) 1 % (0-10); EOSINOPHILS # (AUTO) 0.1 10^3/uL (0.0-0.3); EOSINOPHILS % (AUTO) 3 % (0-10); HEMATOCRIT 39 % (40-54); HEMOGLOBIN 12.8 g/dL (13.3-17.7); LYMPHOCYTES % (AUTO) 50 % (12-44); MEAN CORPUSCULAR HEMOGLOBIN 32 pg (25-34); MEAN CORPUSCULAR HGB CONC 33 g/dL (32-36); MEAN CORPUSCULAR VOLUME 98 fL (80-99); MONOCYTES # (AUTO) 0.4 10^3/uL (0.0-1.0); MONOCYTES % (AUTO) 9 % (0-12); NEUTROPHILS # (AUTO) 1.4 10^3/uL (1.8-7.8); NEUTROPHILS % (AUTO) 36 % (42-75); PLATELET COUNT 139 10^3/uL (130-400); WHITE BLOOD COUNT 3.9 10^3/uL (4.3-11.0)
[2020-11-26 11:51] LABS: BUN/CREATININE RATIO 16; CALCIUM 9.2 MG/DL (8.5-10.1); CARBON DIOXIDE 27 MMOL/L (21-32); CHLORIDE 106 MMOL/L (98-107); CREATININE SERUM 0.88 MG/DL (0.60-1.30); GFR ESTIMATED > 60; GLUCOSE 121 MG/DL (70-105); POTASSIUM 4.1 MMOL/L (3.6-5.0); SODIUM 141 MMOL/L (135-145)
== END 2020-12-02 | disposition home or self-care (01) ==
LOC: ONC 11:23
PROVIDERS: ATTEND Internal Medicine Hematology & Oncology
DX: C16.9 Malignant neoplasm of stomach, unspecified (principal); C15.9 Malignant neoplasm of esophagus, unspecified; Z98.42 Cataract extraction status, left eye
CPT/HCPCS: 36591; 80048; 80053; 82378; 83735; 84443; 85025; 96367; 96368; 96375; 96411; 96413; 96416; 96417; 99213

== ENCOUNTER → 2020-11-29 | Outpatient (CLI) | payer MEDICARE, OTHER ==
[~2020-11-29] MED LIST changes: -D5W 500 ML IV (CANCER CTR) 500 ML IV SCH; -FLUOROURACIL IV SCH; -FOSAPREPITANT (CANCER CENTER) 150 MG in NS (IVPB) CANCER CENTER ONLY 150 ML IV SCH; +HOLD METFORMIN - RECEIVED CONTRAST 20 ML VIAL IV SCH; +IOHEXOL 350 MG/ML 100 ML (OMNIPAQUE 350) VIAL IV ONE; -LEUCOVORIN CALCIUM 400 MG in D5W 250 ML IVPB (CANCER CTR) 250 ML IV SCH; -LEUCOVORIN CALCIUM 500 MG, LEUCOVORIN CALCIUM 100 MG in D5W 250 ML IVPB (CANCER CTR) 25... IV SCH; -NIVOLUMAB 240 MG in NS (IVPB) CANCER CENTER 100 ML IV SCH; +NS 100 ML (IVPB) BAG IV ONE; -NS IV SCH; -OXALIPLATIN 160 MG in D5W 250 ML IVPB (CANCER CTR) 250 ML IV SCH
[2020-11-29] MEDS: CATHETER FLUSH 10 ML SYR IV PRN ×2 (11:52→12:19)
--- NOTE | 2020-11-29 14:00 | Diagnostic Imaging Report ---
PROCEDURE: CT chest with contrast, CT abdomen with and without contrast. TECHNIQUE: Precontrast acquisitions were acquired through the abdomen. Multiple contiguous axial images were obtained through the chest and abdomen after administration of intravenous contrast. Auto Exposure Controls were utilized during the CT exam to meet ALARA standards for radiation dose reduction. INDICATION: Malignant neoplasm of cardia. COMPARISON: The exam is correlated with the metabolic PET/CT of 07/24/2020 and also compared with the CT chest, abdomen, and pelvis of 07/05/2020. FINDINGS: CHEST: No lung mass or suspicious pulmonary nodule. No evidence for pneumonia or pulmonary edema. No effusion or pneumothorax. No lymphadenopathy. No suspicious chest wall finding. ABDOMEN/PELVIS: Mass at the gastrohepatic ligament in the left upper quadrant is measured at 2.7 x 1.9 cm, previously 3.4 x 2.5 cm. This has also diminished in density. Irregular nodular thickening of the johnson across the EG junction and gastric cardia is once again identified. On the prior exam, there was some indeterminate heterogeneous enhancement and density in the left hepatic which is not reproduced at this study. No focal liver lesion identified and there is no bile duct dilatation. The nonfocal spleen is normal in size. The adrenals are negative. The pancreas itself appears unremarkable. There is a percutaneous gastrostomy tube present without pericatheter fluid collection or hernia. The adrenals and kidneys are negative. The aorta is nonaneurysmal and patent. 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 There is a left periaortic retroperitoneal node measuring 1.2 cm x 0.8 cm, previously 2.1 x 1.3 cm. Previously there were multiple small nodes in the left retroperitoneum at and just above the level of the aortic bifurcation. These nodes are no longer identified. There is no ascites. No suspicious bony lesion. IMPRESSION: CHEST: No evidence for thoracic metastasis. ABDOMEN: 1. Irregular thickening at the EG junction and gastric cardia is unchanged, presumed to reflect the known primary neoplasm. There is 2. A low-density mass in the gastrohepatic ligament has decreased in size and density and there are improvements in periaortic retroperitoneal adenopathy with no adverse development and resolution of prior left hepatic lobe heterogeneity. Dictated by: Dictated on workstation # [id number]
--- NOTE | 2020-11-29 16:07 | Diagnostic Imaging Report ---
Indication: Malignant neoplasm of cardia. Patient received an intravenous dose 26.5 mCi technetium 99 MDP intravenously after 3 hours whole-body planar imaging was performed. Findings: Soft tissue uptake and excretion of radiopharmacy by urinary tracts. There is a small punctate foci of relative increased uptake anterior left chest wall believed to correspond to areas of exuberant costochondral calcifications in the chest as seen at earlier performed CT. Sternomanubrium and ribs appeared normal. There are mild arthritic changes to the knees and shoulders. Spine unremarkable. Calvarium unremarkable. No findings suggestive of scintigraphic evidence for bony metastatic disease. Impression: No suspicious finding when correlated with earlier CT. Dictated by: Dictated on workstation # [id number]
== END ==
LOC: CARD 12:00
PROVIDERS: ATTEND Nurse Practitioner Adult Health
DX: C16.0 Malignant neoplasm of cardia (principal); C78.7 Secondary malignant neoplasm of liver and intrahepatic bile duct; M24.29 Disorder of ligament, other specified site; Z93.1 Gastrostomy status
CPT/HCPCS: 71260; 74170; 78306; A9503

== ENCOUNTER → 2020-12-03 | Outpatient (CLI) | payer MEDICARE, OTHER ==
[~2020-12-03] MED LIST changes: -HOLD METFORMIN - RECEIVED CONTRAST 20 ML VIAL IV SCH; -IOHEXOL 350 MG/ML 100 ML (OMNIPAQUE 350) VIAL IV ONE; -NS 100 ML (IVPB) BAG IV ONE
[2020-12-03 09:23] LABS: BASOPHILS % (AUTO) 1 % (0-10); EOSINOPHILS # (AUTO) 0.2 10^3/uL (0.0-0.3); EOSINOPHILS % (AUTO) 3 % (0-10); HEMATOCRIT 38 % (40-54); HEMOGLOBIN 12.7 g/dL (13.3-17.7); LYMPHOCYTES # (AUTO) 2.8 10^3/uL (1.0-4.0); LYMPHOCYTES % (AUTO) 49 % (12-44); MEAN CORPUSCULAR HEMOGLOBIN 33 pg (25-34); MEAN CORPUSCULAR HGB CONC 34 g/dL (32-36); MEAN CORPUSCULAR VOLUME 97 fL (80-99); MEAN PLATELET VOLUME 10.6 fL (9.0-12.2); MONOCYTES # (AUTO) 0.5 10^3/uL (0.0-1.0); MONOCYTES % (AUTO) 9 % (0-12); NEUTROPHILS # (AUTO) 2.1 10^3/uL (1.8-7.8); NEUTROPHILS % (AUTO) 38 % (42-75); PLATELET COUNT 138 10^3/uL (130-400); WHITE BLOOD COUNT 5.7 10^3/uL (4.3-11.0)
[2020-12-03 09:43] LABS: ALANINE AMINOTRANSFERASE 65 U/L (0-55); ALBUMIN 3.4 GM/DL (3.2-4.5); ALKALINE PHOSPHATASE 360 U/L (40-136); BILIRUBIN,TOTAL 0.7 MG/DL (0.1-1.0); BUN/CREATININE RATIO 14; CALCIUM 9.3 MG/DL (8.5-10.1); CARBON DIOXIDE 27 MMOL/L (21-32); CHLORIDE 105 MMOL/L (98-107); CREATININE SERUM 0.84 MG/DL (0.60-1.30); GFR ESTIMATED > 60; GLUCOSE 94 MG/DL (70-105); MAGNESIUM 1.9 MG/DL (1.6-2.4); POTASSIUM 4.4 MMOL/L (3.6-5.0); SODIUM 140 MMOL/L (135-145); TOTAL PROTEIN 6.9 GM/DL (6.4-8.2)
== END ==
LOC: ONC 08:49
PROVIDERS: ATTEND Internal Medicine Hematology & Oncology
DX: C16.0 Malignant neoplasm of cardia (principal); C78.7 Secondary malignant neoplasm of liver and intrahepatic bile duct; R53.1 Weakness; E66.9 Obesity, unspecified; E44.0 Moderate protein-calorie malnutrition; R26.9 Unspecified abnormalities of gait and mobility; Z68.25 Body mass index [BMI] 25.0-25.9, adult
CPT/HCPCS: 80053; 82378; 83735; 85025; G0463; 36591

== ENCOUNTER → 2020-12-04 | Outpatient (CLI) | payer MEDICARE, OTHER ==
[~2020-12-04] MED LIST changes: +GADOBUTROL 10 MMOL/10 ML (GADAVIST) VIAL IV ONE
--- NOTE | 2020-12-04 10:08 | Diagnostic Imaging Report ---
PROCEDURE: MR imaging of the brain with and without contrast. TECHNIQUE: Multiplanar, multisequence MR imaging of the brain was performed with and without contrast. INDICATION: Abnormal gait. History of gastric cancer. Evaluate for metastatic disease. COMPARISON: 06/15/2018. Findings: No acute ischemia, mass, or hemorrhage. No abnormal enhancement is seen. Scattered chronic microvascular disease is seen in the periventricular and subcortical white matter. The ventricles and cortical sulci are prominent. The basilar cisterns are symmetric and unremarkable. The sellar and suprasellar regions have a normal appearance. The major intracranial flow voids are intact. The brainstem and posterior fossa are unremarkable. The paranasal sinuses and mastoid air cells demonstrate normal signal characteristics. The globes and orbits are symmetric and unremarkable. The scalp and calvarium have a normal appearance. Impression: 1. No acute ischemia, mass, or hemorrhage. No abnormal enhancement to suggest intracranial metastatic disease. 2. Generalized parenchymal volume loss with scattered chronic microvascular disease. Dictated by: Dictated on workstation # [id number]
== END ==
LOC: RAD 08:42
PROVIDERS: ATTEND Internal Medicine Hematology & Oncology
DX: C15.9 Malignant neoplasm of esophagus, unspecified (principal); G31.9 Degenerative disease of nervous system, unspecified; R26.9 Unspecified abnormalities of gait and mobility; Z85.028 Personal history of other malignant neoplasm of stomach
CPT/HCPCS: 70553

== ENCOUNTER 2021-02-25 09:14 | Outpatient (RCR) | payer MEDICARE, OTHER ==
[2020-12-10 10:23] LABS: BASOPHILS % (AUTO) 1 % (0-10); EOSINOPHILS # (AUTO) 0.1 10^3/uL (0.0-0.3); EOSINOPHILS % (AUTO) 4 % (0-10); HEMATOCRIT 38 % (40-54); HEMOGLOBIN 12.4 g/dL (13.3-17.7); LYMPHOCYTES # (AUTO) 1.6 10^3/uL (1.0-4.0); LYMPHOCYTES % (AUTO) 57 % (12-44); MEAN CORPUSCULAR HEMOGLOBIN 32 pg (25-34); MEAN CORPUSCULAR HGB CONC 32 g/dL (32-36); MEAN CORPUSCULAR VOLUME 99 fL (80-99); MEAN PLATELET VOLUME 10.3 fL (9.0-12.2); MONOCYTES # (AUTO) 0.2 10^3/uL (0.0-1.0); MONOCYTES % (AUTO) 7 % (0-12); NEUTROPHILS # (AUTO) 0.8 10^3/uL (1.8-7.8); NEUTROPHILS % (AUTO) 31 % (42-75); PLATELET COUNT 117 10^3/uL (130-400); WHITE BLOOD COUNT 2.7 10^3/uL (4.3-11.0)
[2020-12-10 10:45] LABS: BUN/CREATININE RATIO 15; CALCIUM 9.1 MG/DL (8.5-10.1); CARBON DIOXIDE 29 MMOL/L (21-32); CHLORIDE 104 MMOL/L (98-107); CREATININE SERUM 0.86 MG/DL (0.60-1.30); GFR ESTIMATED > 60; GLUCOSE 126 MG/DL (70-105); POTASSIUM 4.3 MMOL/L (3.6-5.0); SODIUM 138 MMOL/L (135-145)
[2020-12-17 10:11] LABS: BASOPHILS % (AUTO) 1 % (0-10); EOSINOPHILS # (AUTO) 0.4 10^3/uL (0.0-0.3); EOSINOPHILS % (AUTO) 6 % (0-10); HEMATOCRIT 40 % (40-54); LYMPHOCYTES # (AUTO) 2.8 10^3/uL (1.0-4.0); LYMPHOCYTES % (AUTO) 43 % (12-44); MEAN CORPUSCULAR HEMOGLOBIN 32 pg (25-34); MEAN CORPUSCULAR HGB CONC 32 g/dL (32-36); MEAN CORPUSCULAR VOLUME 99 fL (80-99); MEAN PLATELET VOLUME 10.3 fL (9.0-12.2); MONOCYTES # (AUTO) 0.6 10^3/uL (0.0-1.0); MONOCYTES % (AUTO) 9 % (0-12); NEUTROPHILS # (AUTO) 2.8 10^3/uL (1.8-7.8); NEUTROPHILS % (AUTO) 42 % (42-75); PLATELET COUNT 122 10^3/uL (130-400); WHITE BLOOD COUNT 6.6 10^3/uL (4.3-11.0)
[2020-12-17 10:29] LABS: ALANINE AMINOTRANSFERASE 73 U/L (0-55); ALBUMIN 3.4 GM/DL (3.2-4.5); ALKALINE PHOSPHATASE 404 U/L (40-136); BILIRUBIN,TOTAL 0.7 MG/DL (0.1-1.0); BUN/CREATININE RATIO 16; CALCIUM 9.3 MG/DL (8.5-10.1); CARBON DIOXIDE 25 MMOL/L (21-32); CHLORIDE 104 MMOL/L (98-107); CREATININE SERUM 0.81 MG/DL (0.60-1.30); GFR ESTIMATED > 60; GLUCOSE 92 MG/DL (70-105); MAGNESIUM 1.9 MG/DL (1.6-2.4); POTASSIUM 4.5 MMOL/L (3.6-5.0); SODIUM 139 MMOL/L (135-145); TOTAL PROTEIN 7.2 GM/DL (6.4-8.2)
[2020-12-24 11:45] LABS: BASOPHILS % (AUTO) 1 % (0-10); EOSINOPHILS # (AUTO) 0.3 10^3/uL (0.0-0.3); EOSINOPHILS % (AUTO) 7 % (0-10); HEMATOCRIT 40 % (40-54); HEMOGLOBIN 13.2 g/dL (13.3-17.7); LYMPHOCYTES # (AUTO) 1.7 10^3/uL (1.0-4.0); LYMPHOCYTES % (AUTO) 49 % (12-44); MEAN CORPUSCULAR HEMOGLOBIN 32 pg (25-34); MEAN CORPUSCULAR HGB CONC 33 g/dL (32-36); MEAN CORPUSCULAR VOLUME 99 fL (80-99); MEAN PLATELET VOLUME 10.8 fL (9.0-12.2); MONOCYTES # (AUTO) 0.3 10^3/uL (0.0-1.0); MONOCYTES % (AUTO) 10 % (0-12); NEUTROPHILS # (AUTO) 1.1 10^3/uL (1.8-7.8); NEUTROPHILS % (AUTO) 33 % (42-75); PLATELET COUNT 128 10^3/uL (130-400); WHITE BLOOD COUNT 3.4 10^3/uL (4.3-11.0)
[2020-12-24 12:04] LABS: BUN/CREATININE RATIO 16; CALCIUM 9.5 MG/DL (8.5-10.1); CARBON DIOXIDE 30 MMOL/L (21-32); CHLORIDE 104 MMOL/L (98-107); CREATININE SERUM 0.88 MG/DL (0.60-1.30); GFR ESTIMATED > 60; GLUCOSE 126 MG/DL (70-105); POTASSIUM 4.2 MMOL/L (3.6-5.0); SODIUM 141 MMOL/L (135-145)
[2020-12-31 09:15] LABS: HEMOGLOBIN 12.9 g/dL (13.3-17.7); MEAN PLATELET VOLUME 10.5 fL (9.0-12.2); PLATELET COUNT 122 10^3/uL (130-400)
[2020-12-31 09:17] LABS: BASOPHILS % (AUTO) 1 % (0-10); EOSINOPHILS # (AUTO) 0.6 10^3/uL (0.0-0.3); EOSINOPHILS % (AUTO) 8 % (0-10); HEMATOCRIT 39 % (40-54); LYMPHOCYTES # (AUTO) 2.9 10^3/uL (1.0-4.0); LYMPHOCYTES % (AUTO) 41 % (12-44); MEAN CORPUSCULAR HEMOGLOBIN 32 pg (25-34); MEAN CORPUSCULAR HGB CONC 33 g/dL (32-36); MEAN CORPUSCULAR VOLUME 98 fL (80-99); MONOCYTES # (AUTO) 0.7 10^3/uL (0.0-1.0); MONOCYTES % (AUTO) 10 % (0-12); NEUTROPHILS # (AUTO) 2.8 10^3/uL (1.8-7.8); NEUTROPHILS % (AUTO) 39 % (42-75); WHITE BLOOD COUNT 7.1 10^3/uL (4.3-11.0)
[2020-12-31 09:38] LABS: ALANINE AMINOTRANSFERASE 54 U/L (0-55); ALBUMIN 3.4 GM/DL (3.2-4.5); ALKALINE PHOSPHATASE 449 U/L (40-136); BILIRUBIN,TOTAL 0.7 MG/DL (0.1-1.0); BUN/CREATININE RATIO 15; CALCIUM 9.2 MG/DL (8.5-10.1); CARBON DIOXIDE 30 MMOL/L (21-32); CHLORIDE 103 MMOL/L (98-107); CREATININE SERUM 0.86 MG/DL (0.60-1.30); GFR ESTIMATED > 60; GLUCOSE 91 MG/DL (70-105); MAGNESIUM 3.8 MG/DL (1.6-2.4); POTASSIUM 4.4 MMOL/L (3.6-5.0); SODIUM 140 MMOL/L (135-145); TOTAL PROTEIN 7.2 GM/DL (6.4-8.2)
[2021-01-07 10:56] LABS: BASOPHILS % (AUTO) 1 % (0-10); EOSINOPHILS # (AUTO) 0.5 10^3/uL (0.0-0.3); EOSINOPHILS % (AUTO) 11 % (0-10); HEMATOCRIT 41 % (40-54); HEMOGLOBIN 13.2 g/dL (13.3-17.7); LYMPHOCYTES # (AUTO) 2.1 10^3/uL (1.0-4.0); LYMPHOCYTES % (AUTO) 50 % (12-44); MEAN CORPUSCULAR HEMOGLOBIN 32 pg (25-34); MEAN CORPUSCULAR HGB CONC 32 g/dL (32-36); MEAN CORPUSCULAR VOLUME 100 fL (80-99); MONOCYTES # (AUTO) 0.2 10^3/uL (0.0-1.0); MONOCYTES % (AUTO) 6 % (0-12); NEUTROPHILS # (AUTO) 1.4 10^3/uL (1.8-7.8); NEUTROPHILS % (AUTO) 33 % (42-75); PLATELET COUNT 114 10^3/uL (130-400); WHITE BLOOD COUNT 4.2 10^3/uL (4.3-11.0)
[2021-01-07 11:15] LABS: BUN/CREATININE RATIO 15; CALCIUM 9.1 MG/DL (8.5-10.1); CARBON DIOXIDE 31 MMOL/L (21-32); CHLORIDE 103 MMOL/L (98-107); CREATININE SERUM 0.85 MG/DL (0.60-1.30); GFR ESTIMATED > 60; GLUCOSE 105 MG/DL (70-105); SODIUM 140 MMOL/L (135-145)
[2021-01-14 09:08] LABS: HEMATOCRIT 40 % (40-54); MEAN CORPUSCULAR VOLUME 99 fL (80-99)
[2021-01-14 09:10] LABS: BASOPHILS % (AUTO) 1 % (0-10); EOSINOPHILS # (AUTO) 0.6 10^3/uL (0.0-0.3); EOSINOPHILS % (AUTO) 9 % (0-10); LYMPHOCYTES # (AUTO) 2.8 10^3/uL (1.0-4.0); LYMPHOCYTES % (AUTO) 44 % (12-44); MEAN CORPUSCULAR HEMOGLOBIN 32 pg (25-34); MEAN CORPUSCULAR HGB CONC 33 g/dL (32-36); MEAN PLATELET VOLUME 10.6 fL (9.0-12.2); MONOCYTES # (AUTO) 0.6 10^3/uL (0.0-1.0); MONOCYTES % (AUTO) 9 % (0-12); NEUTROPHILS # (AUTO) 2.4 10^3/uL (1.8-7.8); NEUTROPHILS % (AUTO) 37 % (42-75); PLATELET COUNT 123 10^3/uL (130-400); WHITE BLOOD COUNT 6.4 10^3/uL (4.3-11.0)
[2021-01-14 09:31] LABS: ALANINE AMINOTRANSFERASE 61 U/L (0-55); ALBUMIN 3.3 GM/DL (3.2-4.5); ALKALINE PHOSPHATASE 452 U/L (40-136); BILIRUBIN,TOTAL 0.7 MG/DL (0.1-1.0); BUN/CREATININE RATIO 14; CARBON DIOXIDE 27 MMOL/L (21-32); CHLORIDE 103 MMOL/L (98-107); CREATININE SERUM 0.84 MG/DL (0.60-1.30); GFR ESTIMATED > 60; GLUCOSE 85 MG/DL (70-105); MAGNESIUM 1.8 MG/DL (1.6-2.4); POTASSIUM 4.4 MMOL/L (3.6-5.0); SODIUM 139 MMOL/L (135-145); TOTAL PROTEIN 7.1 GM/DL (6.4-8.2)
[2021-01-29 09:10] LABS: BASOPHILS # (AUTO) 0.1 10^3/uL (0.0-0.1); BASOPHILS % (AUTO) 1 % (0-10)
[2021-01-29 09:11] LABS: EOSINOPHILS # (AUTO) 0.3 10^3/uL (0.0-0.3); EOSINOPHILS % (AUTO) 6 % (0-10); HEMATOCRIT 41 % (40-54); HEMOGLOBIN 13.4 g/dL (13.3-17.7); LYMPHOCYTES # (AUTO) 2.8 10^3/uL (1.0-4.0); LYMPHOCYTES % (AUTO) 51 % (12-44); MEAN CORPUSCULAR HEMOGLOBIN 32 pg (25-34); MEAN CORPUSCULAR HGB CONC 33 g/dL (32-36); MEAN CORPUSCULAR VOLUME 98 fL (80-99); MEAN PLATELET VOLUME 9.9 fL (9.0-12.2); MONOCYTES # (AUTO) 0.5 10^3/uL (0.0-1.0); MONOCYTES % (AUTO) 8 % (0-12); NEUTROPHILS # (AUTO) 1.9 10^3/uL (1.8-7.8); NEUTROPHILS % (AUTO) 34 % (42-75); PLATELET COUNT 136 10^3/uL (130-400); WHITE BLOOD COUNT 5.6 10^3/uL (4.3-11.0)
[2021-01-29 09:39] LABS: ALANINE AMINOTRANSFERASE 58 U/L (0-55); ALBUMIN 3.3 GM/DL (3.2-4.5); ALKALINE PHOSPHATASE 451 U/L (40-136); BILIRUBIN,TOTAL 0.6 MG/DL (0.1-1.0); BUN/CREATININE RATIO 16; CALCIUM 9.4 MG/DL (8.5-10.1); CARBON DIOXIDE 26 MMOL/L (21-32); CHLORIDE 104 MMOL/L (98-107); CREATININE SERUM 0.83 MG/DL (0.60-1.30); GFR ESTIMATED > 60; GLUCOSE 89 MG/DL (70-105); POTASSIUM 4.4 MMOL/L (3.6-5.0); SODIUM 139 MMOL/L (135-145); TOTAL PROTEIN 7.4 GM/DL (6.4-8.2)
[2021-02-11 11:24] LABS: BASOPHILS % (AUTO) 1 % (0-10); MEAN CORPUSCULAR HEMOGLOBIN 33 pg (25-34); MEAN CORPUSCULAR HGB CONC 33 g/dL (32-36)
[2021-02-11 11:26] LABS: EOSINOPHILS # (AUTO) 0.2 10^3/uL (0.0-0.3); EOSINOPHILS % (AUTO) 4 % (0-10); HEMATOCRIT 38 % (40-54); HEMOGLOBIN 12.4 g/dL (13.3-17.7); LYMPHOCYTES # (AUTO) 2.1 10^3/uL (1.0-4.0); LYMPHOCYTES % (AUTO) 49 % (12-44); MEAN CORPUSCULAR VOLUME 100 fL (80-99); MEAN PLATELET VOLUME 10.5 fL (9.0-12.2); MONOCYTES # (AUTO) 0.3 10^3/uL (0.0-1.0); MONOCYTES % (AUTO) 8 % (0-12); NEUTROPHILS # (AUTO) 1.7 10^3/uL (1.8-7.8); NEUTROPHILS % (AUTO) 38 % (42-75); PLATELET COUNT 124 10^3/uL (130-400); WHITE BLOOD COUNT 4.4 10^3/uL (4.3-11.0)
[2021-02-11 11:43] LABS: ALANINE AMINOTRANSFERASE 79 U/L (0-55); ALBUMIN 3.1 GM/DL (3.2-4.5); ALKALINE PHOSPHATASE 571 U/L (40-136); BILIRUBIN,TOTAL 1.3 MG/DL (0.1-1.0); BUN/CREATININE RATIO 16; CARBON DIOXIDE 27 MMOL/L (21-32); CHLORIDE 106 MMOL/L (98-107); CREATININE SERUM 0.81 MG/DL (0.60-1.30); GFR ESTIMATED > 60; GLUCOSE 132 MG/DL (70-105); POTASSIUM 4.4 MMOL/L (3.6-5.0); SODIUM 140 MMOL/L (135-145); TOTAL PROTEIN 7.1 GM/DL (6.4-8.2)
[~2021-02-25 09:14] MED LIST changes: +D5W 500 ML IV (CANCER CTR) 500 ML IV SCH; +FOSAPREPITANT (CANCER CENTER) 150 MG in NS (IVPB) CANCER CENTER ONLY 150 ML IV SCH; -GADOBUTROL 10 MMOL/10 ML (GADAVIST) VIAL IV ONE; +LEUCOVORIN CALCIUM 400 MG in D5W 250 ML IVPB (CANCER CTR) 250 ML IV SCH; +NIVOLUMAB 240 MG in NS (IVPB) CANCER CENTER 100 ML IV SCH; +NS IV 1000 ML (CANCER CTR) 1,000 ML ONE; +NS IV 500 ML (CANCER CENTER) 500 ML IV SCH; +OXALIPLATIN 160 MG in D5W 250 ML IVPB (CANCER CTR) 250 ML IV SCH
[2021-02-25 09:46] LABS: BASOPHILS % (AUTO) 1 % (0-10); EOSINOPHILS # (AUTO) 0.1 10^3/uL (0.0-0.3); EOSINOPHILS % (AUTO) 2 % (0-10); HEMATOCRIT 40 % (40-54); HEMOGLOBIN 13.1 g/dL (13.3-17.7); LYMPHOCYTES # (AUTO) 2.8 10^3/uL (1.0-4.0); LYMPHOCYTES % (AUTO) 48 % (12-44); MEAN CORPUSCULAR HEMOGLOBIN 33 pg (25-34); MEAN CORPUSCULAR HGB CONC 33 g/dL (32-36); MEAN CORPUSCULAR VOLUME 99 fL (80-99); MEAN PLATELET VOLUME 10.2 fL (9.0-12.2); MONOCYTES # (AUTO) 0.4 10^3/uL (0.0-1.0); MONOCYTES % (AUTO) 7 % (0-12); NEUTROPHILS # (AUTO) 2.4 10^3/uL (1.8-7.8); NEUTROPHILS % (AUTO) 42 % (42-75); PLATELET COUNT 171 10^3/uL (130-400); WHITE BLOOD COUNT 5.8 10^3/uL (4.3-11.0)
[2021-02-25 10:04] LABS: ALANINE AMINOTRANSFERASE 59 U/L (0-55); ALBUMIN 3.1 GM/DL (3.2-4.5); ALKALINE PHOSPHATASE 586 U/L (40-136); BILIRUBIN,TOTAL 2.1 MG/DL (0.1-1.0); BUN/CREATININE RATIO 18; CALCIUM 9.3 MG/DL (8.5-10.1); CARBON DIOXIDE 25 MMOL/L (21-32); CHLORIDE 105 MMOL/L (98-107); CREATININE SERUM 0.78 MG/DL (0.60-1.30); GFR ESTIMATED > 60; GLUCOSE 100 MG/DL (70-105); POTASSIUM 4.3 MMOL/L (3.6-5.0); SODIUM 139 MMOL/L (135-145); TOTAL PROTEIN 7.4 GM/DL (6.4-8.2)
== END 2021-03-04 | disposition home or self-care (01) ==
LOC: ONC 09:14
PROVIDERS: ATTEND Internal Medicine Hematology & Oncology
DX: C16.9 Malignant neoplasm of stomach, unspecified (principal); C15.5 Malignant neoplasm of lower third of esophagus; Z98.42 Cataract extraction status, left eye
CPT/HCPCS: 36591; 80048; 80053; 82378; 83735; 84443; 85025; 96367; 96368; 96375; 96413; 96417

== ENCOUNTER → 2021-03-05 | Outpatient (CLI) | payer MEDICARE, OTHER ==
[~2021-03-05] MED LIST changes: +BARIUM SUSPENSION 2.1% (VANILLA SILQ) 450 ML PO ONE; +CATHETER FLUSH 10 ML SYR IV PRN; -D5W 500 ML IV (CANCER CTR) 500 ML IV SCH; -FOSAPREPITANT (CANCER CENTER) 150 MG in NS (IVPB) CANCER CENTER ONLY 150 ML IV SCH; +HOLD METFORMIN - RECEIVED CONTRAST 20 ML VIAL IV SCH; +IOHEXOL 350 MG/ML 100 ML (OMNIPAQUE 350) VIAL IV ONE; -LEUCOVORIN CALCIUM 400 MG in D5W 250 ML IVPB (CANCER CTR) 250 ML IV SCH; -NIVOLUMAB 240 MG in NS (IVPB) CANCER CENTER 100 ML IV SCH; +NS 100 ML (IVPB) BAG IV ONE; -NS IV 1000 ML (CANCER CTR) 1,000 ML ONE; -NS IV 500 ML (CANCER CENTER) 500 ML IV SCH; -OXALIPLATIN 160 MG in D5W 250 ML IVPB (CANCER CTR) 250 ML IV SCH
[2021-03-05] MEDS: CATHETER FLUSH 10 ML SYR IV PRN ×2 (12:14→12:58)
--- NOTE | 2021-03-05 13:37 | Diagnostic Imaging Report ---
PROCEDURE: CT chest with contrast, CT abdomen with and without contrast. TECHNIQUE: Precontrast acquisitions were acquired through the abdomen. Multiple contiguous axial images were obtained through the chest and abdomen after administration of intravenous contrast. Auto Exposure Controls were utilized during the CT exam to meet ALARA standards for radiation dose reduction. 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 COMPARISON: 11/29/2020. CT CHEST: There is no evidence of new pulmonary mass. No significant pleural or pericardial fluid is identified, and there is no pathologically enlarged thoracic adenopathy. IMPRESSION: Stable appearance of the thorax without evidence of acute abnormality or thoracic metastatic disease. CT ABDOMEN AND PELVIS: There has been further increase in the mural thickening along the lesser curvature of the stomach extending from the gastroesophageal junction to the distal body. There is loss of fat plane between the gastric mass and left hepatic lobe with heterogeneous low density seen throughout the adjacent left hepatic lobe suggesting direct neoplastic extension. Gastrostomy tube remains in place with tube reaching the gastric lumen. There is mild biliary ductal dilatation. Gallbladder remains in place without definite inflammation. No pancreatic or adrenal gland lesion is identified. There is borderline splenomegaly. Kidneys are unremarkable. IMPRESSION: There has been further increase in gastric mass extending primarily along the lesser curvature with apparent direct extension into the adjacent left hepatic lobe. Dictated by: Dictated on workstation # [id number]
--- NOTE | 2021-03-05 16:00 | Diagnostic Imaging Report ---
INDICATION: Stomach carcinoma. TECHNIQUE: The patient was administered 25.2 mCi of technetium 99m MDP intravenously and whole-body imaging was performed after a 3 hour delay. COMPARISON: Correlation is made with the prior whole body bone scan from 11/29/2020. FINDINGS: There is normal uptake of activity by the axial and appendicular skeleton. There is uptake by the kidneys with excretion into the urinary bladder. No suspicious uptake is identified to suggest osseous metastatic disease. IMPRESSION: No scintigraphic evidence of osseous metastatic disease. Dictated by: Dictated on workstation # [id number]
== END ==
LOC: CARD 12:00
PROVIDERS: ATTEND Nurse Practitioner Adult Health
DX: C16.0 Malignant neoplasm of cardia (principal); C78.7 Secondary malignant neoplasm of liver and intrahepatic bile duct
CPT/HCPCS: 71260; 74170; 78306; A9503

== ENCOUNTER → 2021-03-25 | Outpatient (CLI) | payer MEDICARE, OTHER ==
[~2021-03-25] MED LIST changes: -BARIUM SUSPENSION 2.1% (VANILLA SILQ) 450 ML PO ONE; -CATHETER FLUSH 10 ML SYR IV PRN; -HOLD METFORMIN - RECEIVED CONTRAST 20 ML VIAL IV SCH; -IOHEXOL 350 MG/ML 100 ML (OMNIPAQUE 350) VIAL IV ONE; -NS 100 ML (IVPB) BAG IV ONE
--- NOTE | 2021-03-25 15:21 | Diagnostic Imaging Report ---
INDICATION: Abnormal liver function tests. TECHNIQUE: Ultrasound of the liver and right upper quadrant was performed in the routine fashion. FINDINGS: The liver showed no definite focal lesions, although left lobe is poorly visualized. Common duct measured 3 mm. Gallbladder is partially contracted and therefore its evaluation is limited. There is no definite stone. Pancreas and aorta are obscured by overlying gas. IVC appeared unremarkable at its visualized levels. The right kidney was normal measuring 11.3 cm in length. There was no ascites. IMPRESSION: Somewhat limited study. The gallbladder was partially contracted which limits its evaluation, but no definite stones are seen. There was no biliary dilatation. The liver is also difficult to visualize but showed no overt lesions. There was no ascites. Dictated by: Dictated on workstation # [id number]
== END ==
LOC: RAD 10:35
PROVIDERS: ATTEND Nurse Practitioner Adult Health
DX: K82.0 Obstruction of gallbladder (principal); E80.6 Other disorders of bilirubin metabolism
CPT/HCPCS: 76705

== ENCOUNTER 2021-04-24 08:41 | Outpatient (RCR) | payer MEDICARE, OTHER ==
[2021-03-11 09:41] LABS: BASOPHILS % (AUTO) 0 % (0-10); EOSINOPHILS # (AUTO) 0.2 10^3/uL (0.0-0.3); EOSINOPHILS % (AUTO) 3 % (0-10); HEMATOCRIT 37 % (40-54); HEMOGLOBIN 12.6 g/dL (13.3-17.7); LYMPHOCYTES # (AUTO) 2.8 10^3/uL (1.0-4.0); LYMPHOCYTES % (AUTO) 44 % (12-44); MEAN CORPUSCULAR HEMOGLOBIN 33 pg (25-34); MEAN CORPUSCULAR HGB CONC 34 g/dL (32-36); MEAN CORPUSCULAR VOLUME 98 fL (80-99); MEAN PLATELET VOLUME 10.6 fL (9.0-12.2); MONOCYTES # (AUTO) 0.5 10^3/uL (0.0-1.0); MONOCYTES % (AUTO) 7 % (0-12); NEUTROPHILS # (AUTO) 2.8 10^3/uL (1.8-7.8); NEUTROPHILS % (AUTO) 45 % (42-75); PLATELET COUNT 174 10^3/uL (130-400); WHITE BLOOD COUNT 6.3 10^3/uL (4.3-11.0)
[2021-03-11 09:59] LABS: ALANINE AMINOTRANSFERASE 69 U/L (0-55); ALBUMIN 3.2 GM/DL (3.2-4.5); ALKALINE PHOSPHATASE 766 U/L (40-136); BILIRUBIN,TOTAL 2.4 MG/DL (0.1-1.0); BUN/CREATININE RATIO 20; CALCIUM 9.5 MG/DL (8.5-10.1); CARBON DIOXIDE 27 MMOL/L (21-32); CHLORIDE 104 MMOL/L (98-107); CREATININE SERUM 0.74 MG/DL (0.60-1.30); GFR ESTIMATED > 60; GLUCOSE 92 MG/DL (70-105); POTASSIUM 4.3 MMOL/L (3.6-5.0); SODIUM 139 MMOL/L (135-145); TOTAL PROTEIN 7.5 GM/DL (6.4-8.2)
[2021-03-25 09:23] LABS: BASOPHILS % (AUTO) 0 % (0-10); EOSINOPHILS % (AUTO) 0 % (0-10); HEMATOCRIT 38 % (40-54); HEMOGLOBIN 12.7 g/dL (13.3-17.7); LYMPHOCYTES # (AUTO) 1.5 10^3/uL (1.0-4.0); LYMPHOCYTES % (AUTO) 31 % (12-44); MEAN CORPUSCULAR HEMOGLOBIN 34 pg (25-34); MEAN CORPUSCULAR HGB CONC 34 g/dL (32-36); MEAN CORPUSCULAR VOLUME 100 fL (80-99); MEAN PLATELET VOLUME 10.6 fL (9.0-12.2); MONOCYTES # (AUTO) 0.1 10^3/uL (0.0-1.0); MONOCYTES % (AUTO) 2 % (0-12); NEUTROPHILS # (AUTO) 3.2 10^3/uL (1.8-7.8); NEUTROPHILS % (AUTO) 66 % (42-75); PLATELET COUNT 262 10^3/uL (130-400); WHITE BLOOD COUNT 4.8 10^3/uL (4.3-11.0)
[2021-03-25 09:40] LABS: ALBUMIN 3.2 GM/DL (3.2-4.5); BILIRUBIN,TOTAL 5.7 MG/DL (0.1-1.0); CALCIUM 9.6 MG/DL (8.5-10.1); CREATININE SERUM 0.79 MG/DL (0.60-1.30); MAGNESIUM 1.9 MG/DL (1.6-2.4); POTASSIUM 4.7 MMOL/L (3.6-5.0); TOTAL PROTEIN 8.3 GM/DL (6.4-8.2)
[~2021-04-24 08:41] MED LIST changes: +FAMOTIDINE 20MG/2ML IV (CANCER CTR) IV SCH; +NIVOLUMAB 240 MG in NS (IVPB) CANCER CENTER 100 ML IV SCH; +NS IV 500 ML (CANCER CENTER) 500 ML IV SCH; +NS IV SCH; +RAMUCIRUMAB IV SCH; +diphenhydrAMINE 50 MG/ML INJ (CANCER CENTER) IV PRN
[2021-04-24 08:53] LABS: BASOPHILS # (AUTO) 0.1 10^3/uL (0.0-0.1); BASOPHILS % (AUTO) 1 % (0-10); EOSINOPHILS # (AUTO) 0.5 10^3/uL (0.0-0.3); EOSINOPHILS % (AUTO) 5 % (0-10); HEMATOCRIT 36 % (40-54); LYMPHOCYTES % (AUTO) 25 % (12-44); MEAN CORPUSCULAR HEMOGLOBIN 34 pg (25-34); MEAN CORPUSCULAR HGB CONC 33 g/dL (32-36); MEAN CORPUSCULAR VOLUME 104 fL (80-99); MEAN PLATELET VOLUME 10.4 fL (9.0-12.2); MONOCYTES # (AUTO) 0.7 10^3/uL (0.0-1.0); MONOCYTES % (AUTO) 6 % (0-12); NEUTROPHILS # (AUTO) 7.6 10^3/uL (1.8-7.8); NEUTROPHILS % (AUTO) 64 % (42-75); PLATELET COUNT 244 10^3/uL (130-400); WHITE BLOOD COUNT 11.9 10^3/uL (4.3-11.0)
[2021-04-24 09:30] LABS: ALBUMIN 2.6 GM/DL (3.2-4.5); CALCIUM 9.3 MG/DL (8.5-10.1); CREATININE SERUM 0.92 MG/DL (0.60-1.30); TOTAL PROTEIN 7.1 GM/DL (6.4-8.2)
[2021-04-24 09:35] LABS: BILIRUBIN,TOTAL 14.6 MG/DL (0.1-1.0)
[2021-05-04] MEDS ORDERED: CEFD250S3 PO (18:53)
== END 2021-06-09 | disposition home or self-care (01) ==
LOC: ONC 08:41
PROVIDERS: ATTEND Internal Medicine Hematology & Oncology
DX: C16.9 Malignant neoplasm of stomach, unspecified (principal); C15.5 Malignant neoplasm of lower third of esophagus; Z98.42 Cataract extraction status, left eye
CPT/HCPCS: 80053; 82378; 83735; 84443; 85025; G0463; 36591; 99213

== ENCOUNTER 2021-05-04 15:48 | Emergency (ER) | payer MEDICARE, OTHER ==
[~2021-05-04] VITALS: Ht 172.7 cm; Wt 68.0 kg
[~2021-05-04 15:48] MED LIST changes: -FAMOTIDINE 20MG/2ML IV (CANCER CTR) IV SCH; -NIVOLUMAB 240 MG in NS (IVPB) CANCER CENTER 100 ML IV SCH; -NS IV 500 ML (CANCER CENTER) 500 ML IV SCH; -NS IV SCH; -RAMUCIRUMAB IV SCH; -diphenhydrAMINE 50 MG/ML INJ (CANCER CENTER) IV PRN
[2021-05-04 16:08] LABS: BASOPHILS # (AUTO) 0.1 10^3/uL (0.0-0.1); BASOPHILS % (AUTO) 1 % (0-10); EOSINOPHILS % (AUTO) 0 % (0-10); HEMATOCRIT 36 % (40-54); HEMOGLOBIN 11.5 g/dL (13.3-17.7); LYMPHOCYTES # (AUTO) 2.9 10^3/uL (1.0-4.0); LYMPHOCYTES % (AUTO) 15 % (12-44); MEAN CORPUSCULAR HEMOGLOBIN 34 pg (25-34); MEAN CORPUSCULAR HGB CONC 32 g/dL (32-36); MEAN CORPUSCULAR VOLUME 104 fL (80-99); MEAN PLATELET VOLUME 10.6 fL (9.0-12.2); MONOCYTES # (AUTO) 1.1 10^3/uL (0.0-1.0); MONOCYTES % (AUTO) 5 % (0-12); NEUTROPHILS # (AUTO) 15.7 10^3/uL (1.8-7.8); NEUTROPHILS % (AUTO) 79 % (42-75); PLATELET COUNT 258 10^3/uL (130-400)
[2021-05-04 16:14] LABS: ALBUMIN 2.1 GM/DL (3.2-4.5); POTASSIUM 4.4 MMOL/L (3.6-5.0)
[2021-05-04 16:15] LABS: CALCIUM 8.7 MG/DL (8.5-10.1)
[2021-05-04 16:17] LABS: TOTAL PROTEIN 6.6 GM/DL (6.4-8.2)
[2021-05-04 16:20] LABS: CREATININE SERUM 0.92 MG/DL (0.60-1.30)
[2021-05-04 16:24] LABS: MAGNESIUM 2.1 MG/DL (1.6-2.4)
[2021-05-04 16:26] LABS: BILIRUBIN,TOTAL 13.8 MG/DL (0.1-1.0)
[2021-05-04 16:35] LABS: BAND NEUTROPHILS 5 %; BASOPHILS % (MANUAL) 0 %; EOSINOPHILS % (MANUAL) 0 %; LYMPHOCYTES % (MANUAL) 6 %; METAMYELOCYTES % 1 %; MONOCYTES % (MANUAL) 5 %; NEUTROPHILS % (MANUAL) 83 %
[2021-05-04 16:36] LABS: ANISOCYTOSIS SLIGHT; POLYCHROMASIA SLIGHT; TARGET CELLS SLIGHT
[2021-05-04 16:44] LABS: CLARITY,URINE CLOUDY; COLOR,URINE AMBER; GLUCOSE, URINE (UA) TRACE (NEGATIVE); KETONES,URINE NEGATIVE (NEGATIVE); LEUKOCYTE ESTERASE ,URINE 1+ (NEGATIVE); NITRITE,URINE POSITIVE (NEGATIVE); PROTEIN,URINE TRACE (NEGATIVE)
[2021-05-04 16:50] LABS: BILIRUBIN,URINE 3+ (NEGATIVE)
[2021-05-04 16:53] LABS: BACTERIA,URINE LARGE /HPF; WBC,URINE 25-50 /HPF
--- NOTE | 2021-05-04 17:03 | ED General ---
General Chief Complaint: General Problems/Pain Stated Complaint: LETHARGY Nursing Triage Note: Pt arrives to ER via EMS from home. 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 According to EMS, reports that pt was difficult to arouse. Pt c/o general feelings of weakness, just 'not feeling well. Reports started a new chemo med, Meknist, 4 days ago. Pt arrives jaundice in color, also has a g-tube present, reports can drink small amounts of water but primarily uses G-tube. Source of Information: Patient, EMS Exam Limitations: No Limitations History of Present Illness Date Seen by Provider: May 04, 2021 Time Seen by Provider: 15:50 Initial Comments This 76-year-old gentleman with widespread cancer presents to the emergency room with vague complaints of just feeling awful. He denies any specific focal complaints such as shortness of breath, pain, vomiting, diarrhea, shortness of breath, etc. He is grossly jaundiced. He has recently started an experimental therapy of Mekinist and wonders if he may be experiencing adverse effects. Reportedly his thought he was "lethargic" earlier today. He is very talkative and energetic at this time and does not at all appear lethargic. Allergies and Home Medications Allergies Coded Allergies: No Known Drug Allergies (Unverified , 02/07/16) Patient Home Medication List Home Medication List Reviewed: Yes Cyanocobalamin (Vitamin B-12) (Vitamin B12) 2,500 Mcg Tablet, 2,500 MCG PO DAILY, (Reported) Entered as Reported by: NORMA HOUSE on 06/02/17 1253 Fexofenadine HCl (Fexofenadine HCl) 180 Mg Tablet, 180 MG PO DAILY, (Reported) Entered as Reported by: NORMA HOUSE on 06/02/17 1253 Hydrocodone Bit/Acetaminophen (HYDROcodone/APAP 10/325 TABLET) 1 Each Tablet, 1 TAB PO Q4H PRN for PAIN-MILD TO MODERATE Prescribed by: WENCESLAO WAY on 06/05/17 1200 Multivit-Min/FA/Lycopen/Lutein (Men 50 Plus Multivitamin Tab) 1 Each Tablet, 1 EACH PO DAILY, (Reported) Entered as Reported by: NORMA HOUSE on 06/02/17 1253 Multivitamin W-Minerals/Lutein (Vision Plus Lutein Vitamin Tab) 1 Each Tablet, 1 EACH PO DAILY, (Reported) Entered as Reported by: NORMA HOUSE on 06/02/17 1253 Turmeric/Turmeric Ext/Pepr Ext (Turmeric Complex 500 mg Cap) 1 Each Capsule, 500 MG PO BID, (Reported) Entered as Reported by: NORMA HOUSE on 06/02/17 1253 Vit C/Hernández & Celery Ex/Grp E (Tart Hernández Capsule) 1 Each Capsule, 1,200 MG PO DAILY, (Reported) Entered as Reported by: NORMA HOUSE on 06/02/17 1253 Review of Systems Review of Systems Constitutional: see HPI EENTM: other (Scleral icterus, dry mouth) Respiratory: no symptoms reported Cardiovascular: no symptoms reported Gastrointestinal: abdominal pain Genitourinary: no symptoms reported Musculoskeletal: no symptoms reported Skin: see HPI Psychiatric/Neurological: See HPI Hematologic/Lymphatic: No Symptoms Reported Immunological/Allergic: no symptoms reported Past Lgdvjng-Mcxbwk-Vrlqbf Hx Patient Social History Tobacco Use?: No Use of E-Cig and/or Vaping dev: No Substance use?: No Pt feels they are or have been: No Immunizations Up To Date Tetanus Booster (TDap): Unknown 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: [employer] Seasonal Allergies Seasonal Allergies: Yes Past Medical History Surgeries: Yes (BROKE ARM WHEN HE WAS A CHILD, PEG tube) Respiratory: Yes Sleep Apnea Currently Using CPAP: Yes Cardiac: No Neurological: No Reproductive Disorders: No Sexually Transmitted Disease: No HIV/AIDS: No Gastrointestinal: No Musculoskeletal: Yes Arthritis, Gout Endocrine: No HEENT: No Cancer: Yes Liver, Skin, Stomach, Esophageal Did You Recieve Any Treatments: Yes What Type of Treatment Did You: Other (Oral medication) Psychosocial: No Integumentary: Yes (skin lesions) Blood Disorders: No Physical Exam Vital Signs Vital Signs - First Documented 05/04/21 15:49 Temp 37.5 Pulse 99 Resp 20 B/P (MAP) 108/78 (88) Pulse Ox 97 O2 Delivery Room Air Capillary Refill : Less Than 3 Seconds Height, Weight, BMI Height: 5'11.00" Weight: 250lbs. 0.0oz. 113.532317gp; 22.00 BMI Method:Stated General Appearance: No Apparent Distress, WD/WN, Thin HEENT: PERRL/EOMI, Normal ENT Inspection, Other (Dry mucous membranes, scleral icterus) Neck: Normal Inspection Respiratory: Lungs Clear, Normal Breath Sounds, No Accessory Muscle Use Cardiovascular: Regular Rate, Rhythm, No Edema, No Murmur Gastrointestinal: Non Tender, Soft, Other (PEG tube in place) Extremity: Normal Inspection, No Pedal Edema Neurologic/Psychiatric: Alert, Oriented x3, No Motor/Sensory Deficits, Normal Mood/Affect, petrologist II-XII Norm as Tested Skin: Warm/Dry, Jaundice Focused Exam Lactate Level 05/04/21 15:55: Lactic Acid Level 2.11*H Lactic Acid Level Laboratory Tests Test 05/04/21 15:55 Lactic Acid Level 2.11 MMOL/L (0.50-2.00) *H Progress/Results/Core Measures Suspected Sepsis Recent Fever Within 48 Hours: No New/Unexplained Altered Menta: No SIRS Temperature: Pulse: 87 Respiratory Rate: 16 Laboratory Tests 05/04/21 15:55: White Blood Count 20.0H Blood Pressure 108 /78 Mean: 82 05/04/21 15:55: Lactic Acid Level 2.11*H Laboratory Tests 05/04/21 15:55: Creatinine 0.92, INR Comment 1.3, Platelet Count 258, Total Bilirubin 13.8*H Results/Orders Lab Results Laboratory Tests Test 05/04/21 15:55 05/04/21 15:58 05/04/21 16:35 Range/Units White Blood Count 20.0 H 4.3-11.0 10^3/uL Red Blood Count 3.43 L 4.30-5.52 10^6/uL Hemoglobin 11.5 L 13.3-17.7 g/dL Hematocrit 36 L 40-54 % Mean Corpuscular Volume 104 H 80-99 fL Mean Corpuscular Hemoglobin 34 25-34 pg Mean Corpuscular Hemoglobin Concent 32 32-36 g/dL Red Cell Distribution Width 16.5 H 10.0-14.5 % Platelet Count 258 130-400 10^3/uL Mean Platelet Volume 10.6 9.0-12.2 fL Immature Granulocyte % (Auto) 1 % Neutrophils (%) (Auto) 79 H 42-75 % Lymphocytes (%) (Auto) 15 12-44 % Monocytes (%) (Auto) 5 0-12 % Eosinophils (%) (Auto) 0 0-10 % Basophils (%) (Auto) 1 0-10 % Neutrophils # (Auto) 15.7 H 1.8-7.8 10^3/uL Lymphocytes # (Auto) 2.9 1.0-4.0 10^3/uL Monocytes # (Auto) 1.1 H 0.0-1.0 10^3/uL Eosinophils # (Auto) 0.0 0.0-0.3 10^3/uL Basophils # (Auto) 0.1 0.0-0.1 10^3/uL Immature Granulocyte # (Auto) 0.2 H 0.0-0.1 10^3/uL Neutrophils % (Manual) 83 % Lymphocytes % (Manual) 6 % Monocytes % (Manual) 5 % Eosinophils % (Manual) 0 % Basophils % (Manual) 0 % Metamyelocytes % 1 % Band Neutrophils 5 % Polychromasia SLIGHT Anisocytosis SLIGHT Macrocytosis SLIGHT Target Cells SLIGHT Prothrombin Time 16.6 H 12.2-14.7 SEC INR Comment 1.3 0.8-1.4 Sodium Level 137 135-145 MMOL/L Potassium Level 4.4 3.6-5.0 MMOL/L Chloride Level 104 98-107 MMOL/L Carbon Dioxide Level 23 21-32 MMOL/L Anion Gap 10 5-14 MMOL/L Blood Urea Nitrogen 25 H 7-18 MG/DL Creatinine 0.92 0.60-1.30 MG/DL Estimat Glomerular Filtration Rate 80 BUN/Creatinine Ratio 27 Glucose Level 135 H 70-105 MG/DL Lactic Acid Level 2.11 *H 0.50-2.00 MMOL/L Calcium Level 8.7 8.5-10.1 MG/DL Corrected Calcium 10.2 H 8.5-10.1 MG/DL Magnesium Level 2.1 1.6-2.4 MG/DL Total Bilirubin 13.8 *H 0.1-1.0 MG/DL Aspartate Amino Transf (AST/SGOT) 278 H 5-34 U/L Alanine Aminotransferase (ALT/SGPT) 125 H 0-55 U/L Alkaline Phosphatase 1189 H 40-136 U/L Ammonia 36 H 11-32 UMOL/L Total Creatine Kinase 57 30-200 U/L C-Reactive Protein High Sensitivity 10.72 H 0.00-0.50 MG/DL Total Protein 6.6 6.4-8.2 GM/DL Albumin 2.1 L 3.2-4.5 GM/DL Procalcitonin 1.31 H <0.10 NG/ML Influenza Type A (RT-PCR) Not Detected Not Detecte Influenza Type B (RT-PCR) Not Detected Not Detecte SARS-CoV-2 RNA (RT-PCR) Not Detected Not Detecte Urine Color HERBERT H Urine Clarity CLOUDY Urine pH 6.0 5-9 Urine Specific [place] 1.025 H 1.016-1.022 Urine Protein TRACE H NEGATIVE Urine Glucose (UA) TRACE H NEGATIVE Urine Ketones NEGATIVE NEGATIVE Urine Nitrite POSITIVE H NEGATIVE Urine Bilirubin 3+ H NEGATIVE Urine Urobilinogen 4.0 < = 1.0 MG/DL Urine Leukocyte Esterase 1+ H NEGATIVE Urine RBC (Auto) NEGATIVE NEGATIVE Urine RBC NONE /HPF Urine WBC 25-50 H /HPF Urine Squamous Epithelial Cells NONE /HPF Urine Crystals NONE /LPF Urine Bacteria LARGE H /HPF Urine Casts PRESENT /LPF Urine Coarse Granular Casts 5-10 H /LPF Urine White Blood Cell Casts 2-5 H /LPF Urine Mucus NEGATIVE /LPF Urine Culture Indicated YES My Orders Orders - LAYLA FATIMA MD Ammonia (05/04/21 16:02) Cbc With Automated Diff (05/04/21 16:02) Comprehensive Metabolic Panel (05/04/21 16:02) Magnesium (05/04/21 16:02) Ua Culture If Indicated (05/04/21 16:02) Implanted Port: Access (05/04/21 16:02) Creatine Kinase (05/04/21 16:03) Manual Differential (05/04/21 15:55) Covid 19 Inhouse Test (05/04/21 16:18) Influenza A And B By Pcr (05/04/21 16:18) Urine Culture (05/04/21 16:35) Blood Culture (05/04/21 17:10) Sputum Culture (05/04/21 17:10) Protime With Inr (05/04/21 17:10) Chest 1 View, Ap/Pa Only (05/04/21 17:10) Vital Signs Adult Sepsis Patie Q15M (05/04/21 17:10) Remove Rings In Anticipation O (05/04/21 17:10) Lactic Acid Analyzer (05/04/21 17:10) Ns Iv 1000 Ml (Sodium Chloride 0.9%) (05/04/21 17:15) Ceftriaxone (Rocephin) (05/04/21 17:15) Hs C Reactive Protein (05/04/21 17:12) Procalcitonin (Pct) (05/04/21 17:12) Oxycodone/Apap 5/325mg Tablet (Percocet (05/04/21 17:39) Code/Resuscitation (05/04/21 17:40) Medications Given in ED Current Medications Medications Dose Ordered Sig/Eulogio Route Start Time Stop Time Status Last Admin Dose Admin Ceftriaxone Sodium 1000 mg/ Sterile Water 10 ml @ 200 mls/hr ONCE ONCE IV 05/04/21 17:15 05/04/21 17:17 DC 05/04/21 17:47 200 MLS/HR Vital Signs/I&O 05/04/21 05/04/21 05/04/21 05/04/21 15:49 16:40 16:46 17:05 Temp 37.5 Pulse 99 87 88 100 Resp 20 16 18 16 B/P (MAP) 108/78 (88) 108/78 103/71 112/74 Pulse Ox 97 96 97 98 O2 Delivery Room Air Room Air Room Air 05/04/21 05/04/21 18:22 18:42 Pulse 83 83 Resp 16 16 B/P (MAP) 109/74 116/69 Pulse Ox 99 100 O2 Delivery Room Air Capillary Refill : Less Than 3 Seconds Blood Pressure Mean: 82 Progress Note #1: Time: 17:37 Progress Note COVID-19 screen was negative. Work-up revealed urinary tract infection with leukocytosis. Patient is bordering on sepsis as his initial heart rate was 100 but it has now dropped to normal range with rest. Blood cultures and lactic acid are being drawn. CRP and procalcitonin were added to the labs. Rocephin is being given after blood cultures. After reviewing the additional labs, we will discuss disposition. Patient normally takes pain medication around this time the night. I will order his usual Percocet 5 mg. We discussed his mildly elevated ammonia levels. I offered to prescribe lactulose to be given on a as needed basis if he has associated mental status changes. Patient declines due to risk of diarrhea with lactulose. He already struggles with lactulose and would rather suffer the consequences of elevated ammonia levels than deal with more diarrhea. We also discussed CODE STATUS. Patient elects a DNR. DNR was ordered in the chart. Patient also comments that he believes his adverse effects from Mekinist were abrupt and severe. He indicates he likely will not continue this medication. Progress Note #2: Time: 18:47 Progress Note Patient does not meet septic criteria. He was given Rocephin for initial treatment of sepsis from urinary tract infection source. I discussed recommendations for admission. He is stable at this time with normal vital signs and is feeling relatively well. Given his advanced cancer, he wishes to return home. He acknowledges the risk of possible rapid decompensation, delay of care, and possible risk of by returning home. We discussed return precautions as outlined in the discharge instructions. Diagnostic Imaging Diagonstic Imaging: Xray Plain Films/CT/US/NM/MRI: chest Comments Chest x-ray viewed by me and report reviewed. See report below: NAME: SWETHA YOUSSEF [facility] REC#: [id number] PT STATUS: REG ER : 1945 PHYSICIAN: LAYLA FATIMA MD ADMIT DATE: 05/04/21/ER Draft Date of Exam:05/04/21 CHEST 1 VIEW, AP/PA ONLY Chest 1 view, AP/PA only. Indication: Sepsis. Comparison: CT chest from 03/05/2021. Findings: Questionable hazy opacities in the lung bases. No pleural effusion or pneumothorax. Posterior lower lobes are poorly evaluated by portable radiography. Normal heart size. Right IJ Port-A-Cath is in stable position. Impression: 1. Questionable basilar hazy opacities are most likely due to summation shadow of normal vascular structures. However, atypical infection, such as Covid-19 could give this appearance. 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 Decision time for Depature: 18:49 Referrals: JOSE ARMANDO GALVEZ DO (PCP/Family) Primary Care Physician Patient Instructions: Urinary Tract Infections in Adults, Sepsis, Adult (DC) Add. Discharge Instructions: Infuse plenty of clear liquids in your PEG tube. Urinate frequently to flush out the urinary tract. Fill your antibiotics early tomorrow. Try to get to full doses in tomorrow. Co mplete the entire course as prescribed. Monitor vital signs for instability including heart rate greater than 120 or systolic blood pressure less than 90. Return to care promptly if you notice these unstable changes in vital signs. Also return if you have general worsening of condition including progressive weakness, altered mental status, fevers over 100 degrees, uncontrolled pain, worsening shortness of breath, uncontrolled vomiting or diarrhea, etc. Call with questions or concerns. Follow-up with your primary care provider soon as possible. Blood and urine cultures should be available by Thursday. If you have not heard from anyone regarding your culture results by Thursday, please call either the cancer center or Dr. Galvez to review those results. All discharge instructions reviewed with patient and/or family. Voiced understanding. Scripts Cefdinir (Cefdinir) 250 Mg/5 Ml Susp.recon 300 MG PO BID, #120 ML Prov: LAYLA FATIMA MD 05/04/21 Copy Copies To 1: JOSE ARMANDO GALVEZ DO Copies To 2: LEONARDO RUDD JOSHUA T MD May 04, 2021 17:03
[2021-05-04] MEDS ORDERED: cefTRIAXone 1,000 MG in WATER (STERILE) FOR INJECTION 10 ML IV ONE (17:15)
[2021-05-04] MEDS ORDERED: NS IV 1000 ML 1,000 ML IV SCH (17:15)
[2021-05-04 17:26] LABS: INR 1.3 (0.8-1.4); PROTHROMBIN TIME PATIENT 16.6 SEC (12.2-14.7)
[2021-05-04] MEDS ORDERED: oxyCODONE/APAP 5/325MG (PERCOCET 5) TABLET PEG STA (17:39)
--- NOTE | 2021-05-04 18:38 | Diagnostic Imaging Report ---
Chest 1 view, AP/PA only. Indication: Sepsis. Comparison: CT chest from 03/05/2021. Findings: Questionable hazy opacities in the lung bases. No pleural effusion or pneumothorax. Posterior lower lobes are poorly evaluated by portable radiography. Normal heart size. Right IJ Port-A-Cath is in stable position. Impression: 1. Questionable basilar hazy opacities are most likely due to summation shadow of normal vascular structures. However, atypical infection, such as Covid-19 could give this appearance. Dictated by: Dictated on workstation # [id number]
[2021-05-04 18:50] VITALS: BP 107/71
[2021-05-04] MEDS ORDERED: CEFD250S3 PO (18:53)
== END 2021-05-04 18:59 | disposition home or self-care (01) ==
LOC: EDUNIT# 15:48 → ER 15:50
DX: C78.89 Secondary malignant neoplasm of other digestive organs (principal); A41.9 Sepsis, unspecified organism; N39.0 Urinary tract infection, site not specified; E80.6 Other disorders of bilirubin metabolism; E72.20 Disorder of urea cycle metabolism, unspecified; G47.30 Sleep apnea, unspecified; Z20.822 Contact with and (suspected) exposure to COVID-19
CPT/HCPCS: 36415; 71045; 80053; 81000; 82140; 82550; 83605; 83735; 84145; 85007; 85027; 85610; 86141; 87040; 87077; 87088; 87186; 87636

== ENCOUNTER 2021-05-04 21:04 | Emergency (ER) | payer MEDICARE, OTHER ==
[~2021-05-04] VITALS: Ht 177 cm; Wt 65.0 kg
[~2021-05-04 21:04] MED LIST changes: +CEFD250S3 PO
--- NOTE | 2021-05-04 21:25 | ED General ---
General Chief Complaint: Catheter/Drain/Tube Problems Stated Complaint: FEEDING TUBE OUT Nursing Triage Note: Pt ambulatory into ER with complaint of a dislodged feeding tube. Pt states that he was readjusting in his chair and got it caught and it pulled out. Pt denies pain, but is concerned. Source of Information: Patient Exam Limitations: No Limitations History of Present Illness Date Seen by Provider: May 04, 2021 Time Seen by Provider: 21:24 Initial Comments To ER with reports that his PEG tube fell out just after getting home. He was here most of the day. Timing/Duration: 1-2 Days Severity: Moderate Associated Systoms: Denies Symptoms Allergies and Home Medications Allergies Coded Allergies: No Known Drug Allergies (Unverified , 02/07/16) Patient Home Medication List Home Medication List Reviewed: Yes Cefdinir (Cefdinir) 250 Mg/5 Ml Susp.recon, 300 MG PO BID Prescribed by: LAYLA GONZALEZ on 05/04/21 185 Cyanocobalamin (Vitamin B-12) (Vitamin B12) 2,500 Mcg Tablet, 2,500 MCG PO DAILY, (Reported) Entered as Reported by: NORMA HOUSE on 06/02/17 1253 Fexofenadine HCl (Fexofenadine HCl) 180 Mg Tablet, 180 MG PO DAILY, (Reported) Entered as Reported by: NORMA HOUSE on 06/02/17 1253 Hydrocodone Bit/Acetaminophen (HYDROcodone/APAP 10/325 TABLET) 1 Each Tablet, 1 TAB PO Q4H PRN for PAIN-MILD TO MODERATE Prescribed by: WENCESLAO WAY on 06/05/17 1200 Multivit-Min/FA/Lycopen/Lutein (Men 50 Plus Multivitamin Tab) 1 Each Tablet, 1 EACH PO DAILY, (Reported) Entered as Reported by: NORMA HOUSE on 06/02/17 1253 Multivitamin W-Minerals/Lutein (Vision Plus Lutein Vitamin Tab) 1 Each Tablet, 1 EACH PO DAILY, (Reported) Entered as Reported by: NORMA HOUSE on 06/02/17 1253 Turmeric/Turmeric Ext/Pepr Ext (Turmeric Complex 500 mg Cap) 1 Each Capsule, 500 MG PO BID, (Reported) Entered as Reported by: NORMA HOUSE on 06/02/17 1253 Vit C/Hernández & Celery Ex/Grp E (Tart Hernández Capsule) 1 Each Capsule, 1,200 MG PO DAILY, (Reported) Entered as Reported by: NORMA HOUSE on 06/02/17 125 Review of Systems Review of Systems Constitutional: see HPI EENTM: see HPI Respiratory: no symptoms reported Cardiovascular: no symptoms reported Genitourinary: no symptoms reported Musculoskeletal: no symptoms reported Skin: no symptoms reported Psychiatric/Neurological: No Symptoms Reported Hematologic/Lymphatic: No Symptoms Reported Immunological/Allergic: no symptoms reported Past Kmtryce-Jrrarl-Uegnlp Hx Patient Social History Tobacco Use?: No Use of E-Cig and/or Vaping dev: No Substance use?: No Alcohol Use?: No Pt feels they are or have been: No Immunizations Up To Date Tetanus Booster (TDap): Unknown Influenza Vaccine Up-to-Date: No; Not Current Second COVID19 Vaccination Oliver: 11/18 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[employer] Seasonal Allergies Seasonal Allergies: Yes Past Medical History Surgeries: Yes (BROKE ARM WHEN HE WAS A CHILD, PEG tube) Respiratory: Yes Sleep Apnea Currently Using CPAP: Yes Cardiac: No Neurological: No Reproductive Disorders: No Sexually Transmitted Disease: No HIV/AIDS: No Gastrointestinal: No Musculoskeletal: Yes Arthritis, Gout Endocrine: No HEENT: No Cancer: Yes Liver, Skin, Stomach, Esophageal Did You Recieve Any Treatments: Yes What Type of Treatment Did You: Other Psychosocial: No Integumentary: Yes (skin lesions) Blood Disorders: No Physical Exam Vital Signs Vital Signs - First Documented 05/04/21 21:15 Temp 36.0 Pulse 84 Resp 20 B/P (MAP) 137/81 (99) Pulse Ox 95 O2 Delivery Room Air Capillary Refill : Less Than 3 Seconds Height, Weight, BMI Height: 5'11.00" Weight: 250lbs. 0.0oz. 113.259562es; 20.00 BMI Method:Stated General Appearance: No Apparent Distress, WD/WN Eyes: Bilateral Eye Normal Inspection, Bilateral Eye PERRL, Bilateral Eye EOMI Respiratory: No Accessory Muscle Use, No Respiratory Distress Cardiovascular: Regular Rate, Rhythm, Normal Peripheral Pulses Gastrointestinal: Non Tender, Soft Extremity: Normal Capillary Refill, Normal Inspection Neurologic/Psychiatric: Alert, Oriented x3 Progress/Results/Core Measures Suspected Sepsis SIRS Temperature: Pulse: 84 Respiratory Rate: 20 Blood Pressure 137 /81 Mean: 99 Results/Orders My Orders Orders - ED WILSON APRN Lidocaine 2% (Urojet) (Xylocaine Urojet) (05/04/21 21:30) Medications Given in ED Current Medications Medications Dose Ordered Sig/Eulogio Route Start Time Stop Time Status Last Admin Dose Admin Lidocaine HCl 10 ml ONCE ONCE TOP 05/04/21 21:30 05/04/21 21:31 DC 05/04/21 21:28 10 ML Vital Signs/I&O 05/04/21 21:15 Temp 36.0 Pulse 84 Resp 20 B/P (MAP) 137/81 (99) Pulse Ox 95 O2 Delivery Room Air Capillary Refill : Less Than 3 Seconds Blood Pressure Mean: 99 Departure Communication (Admissions) I was unable to initially get his 16 [place] PEG tube back into place so I put a 14 [place] Lion catheter in the place for little while. Then got some pediatric sounds from OR and upon opening them I removed the Lion catheter and was easily able to place his own 16 [place] PEG tube which had a balloon intact. The only PEG tube is here are size 1820 and 22 so I chose to just use his. Impression Primary Impression: PEG tube malfunction Disposition: HOME, SELF-CARE Condition: Stable Departure-Patient Inst. Decision time for Depature: 22:01 Referrals: JOSE ARMANDO MERCADO DO (PCP/Family) Primary Care Physician Patient Instructions: Percutaneous Endoscopic Gastrostomy (DC) ED WILSON APRN May 04, 2021 21:25
[2021-05-04] MEDS ORDERED: LIDOCAINE UROJET 2% GEL 10 ML PKG TOP ONE (21:30)
[2021-05-04 22:09] VITALS: BP 137/81
== END 2021-05-04 22:05 | disposition home or self-care (01) ==
LOC: EDUNIT# 21:04 → ER 21:06
DX: K94.23 Gastrostomy malfunction (principal); G47.30 Sleep apnea, unspecified
CPT/HCPCS: 99284